=== PATIENT | male | born 1955 | race Caucasian/White ===

== ENCOUNTER 2019-08-01 10:32 | Emergency (ER) | payer SELFPAY ==
[2019-08-01] MEDS ORDERED: SODIUM CHLORIDE 0.9% 1,000 ML IV ONE (12:11)
--- NOTE | 2019-08-01 12:14 | ED Physician Documentation ---
History of Present Illness - Stated complaint Stated Complaint: CONFUSION/WEAKNESS - Chief complaint Chief Complaint: Neuro - History obtained from History obtained from: Patient, Family - History of Present Illness Timing: How many days ago - Additonal information Additional information: Previously well 64-year-old male with no real medical history has begun to feel extremely fatigued about 4 days ago he indicates that he felt that he was exhausted and he has been working on building a house and is under extreme stress. Despite resting he had no relief of his symptoms of being fatigued and today his family is noting that he is even having trouble plugging his cell phone and and is a bit confused. He denies any specific symptoms other than urinating more frequently and drinking more than usual. He does drink about 6 beers a day. He denies any use of whiskey and he denies early day drinking. Review of Systems Constitutional: reports: Myalgias, Fatigue. denies: Fever, Chills, Sweats Eyes: denies: Decreased vision Ears: denies: Ear pain Nose: denies: Rhinorrhea / runny nose, Congestion Throat: denies: Sore throat Cardiac: denies: Chest pain / pressure, Palpitations, Pedal edema, Calf pain Respiratory: denies: Dyspnea, Cough, Wheezing GI: denies: Abdominal Pain, Nausea, Vomiting, Constipation, Diarrhea : denies: Dysuria, Frequency Skin: denies: Rash Musculoskeletal: denies: Neck pain, Back pain, Extremity pain Neurologic: reports: Generalized weakness. denies: Focal weakness, Numbness Endocrine: reports: Polydypsia, Polyuria PD PAST MEDICAL HISTORY - Past Medical History Past Medical History: No Cardiovascular: None Respiratory: None Neuro: None Endocrine/Autoimmune: None GI: None : None HEENT: None Psych: None Musculoskeletal: None Derm: None - Past Surgical History Past Surgical History: No - Allergies Allergies/Adverse Reactions: Allergies Allergy/AdvReac Type Severity Reaction Status Date / Time No Known Drug Allergies Allergy Verified 08/01/19 10:45 - Social History Does the pt smoke?: Yes Smoking Status: Current every day smoker Does the pt drink ETOH?: Yes ETOH Use: Beer Does the pt have substance abuse?: No - Immunizations Immunizations are current?: Yes PD ED PE NORMAL - Vitals Vital signs reviewed: Yes (hypertensive) - General General: Alert and oriented X 3, No acute distress, Well developed/nourished - HEENT HEENT: Atraumatic, PERRL, EOMI, Ears normal, Moist mucous membranes, Pharynx benign, Dentition benign - Neck Neck: Supple, no meningeal sign, No bony TTP - Cardiac Cardiac: RRR, No murmur - Respiratory Respiratory: No respiratory distress, Clear bilaterally - Abdomen Abdomen: Normal bowel sounds, Soft, Non tender, Non distended, No organomegaly - Back Back: No CVA TTP, No spinal TTP - Derm Derm: Normal color, Warm and dry, No rash - Extremities Extremities: No deformity, No edema - Neuro Neuro: Alert and oriented X 3, patient services technician 2-12 intact, No motor deficit, No sensory deficit, Normal speech Eye Opening: Spontaneous Motor: Obeys Commands Verbal: Oriented GCS Score: 15 - Psych Psych: Normal mood, Normal affect Results - Vitals Vitals: Vital Signs - 24 hr 08/01/19 08/01/19 08/01/19 10:41 11:01 11:54 Temperature 36.4 C L Heart Rate 72 70 65 Respiratory 16 16 16 Rate Blood Pressure 142/86 H 123/69 119/74 O2 Saturation 98 97 98 08/01/19 08/01/19 08/01/19 12:54 13:30 14:01 Temperature Heart Rate 58 L 64 57 L Respiratory 16 16 15 Rate Blood Pressure 127/73 117/64 129/71 O2 Saturation 98 97 97 08/01/19 08/01/19 14:32 15:00 Temperature Heart Rate 61 62 Respiratory 16 16 Rate Blood Pressure 124/74 116/77 O2 Saturation 97 97 Oxygen O2 Source Room air - Labs Labs: Laboratory Tests 08/01/19 08/01/19 08/01/19 10:50 10:50 12:25 WBC 5.4 RBC 4.59 L Hgb 14.6 Hct 43.3 MCV 94.3 H MCH 31.8 H MCHC 33.7 RDW 12.5 Plt Count 217 MPV 10.2 Neut # (Auto) 3.1 Lymph # (Auto) 1.8 [place] # (Auto) 0.4 Eos # (Auto) 0.1 Baso # (Auto) 0.0 Absolute Nucleated RBC 0.00 Nucleated RBC % 0.0 Sodium 139 Potassium 3.8 Chloride 104 Carbon Dioxide 24 Anion Gap 11.0 BUN 12 Creatinine 0.8 Estimated GFR (MDRD) 97 Glucose 124 H Calcium 9.3 Total Bilirubin 1.2 H AST 25 ALT 22 Alkaline Phosphatase 52 Total Protein 7.7 Albumin 4.4 Globulin 3.3 Albumin/Globulin Ratio 1.3 Lipase 39 Urine Color YELLOW Urine Clarity CLEAR Urine pH 6.0 Ur Specific [place] 1.010 Urine Protein NEGATIVE Urine Glucose (UA) NEGATIVE Urine Ketones NEGATIVE Urine Occult Blood TRACE-INTA Urine Nitrite NEGATIVE Urine Bilirubin NEGATIVE Urine Urobilinogen 0.2 (NORMAL) Ur Leukocyte Esterase NEGATIVE Ur Microscopic Review NOT INDICATED Urine Culture Comments NOT INDICATED Procedures - IVC sono (time) 1200 Bedside IVC sono: IVC measures (cm) (0.89), IVC collapsed c insp (cm) (complete), Dehydration (est 1-2 liter deficit) PD MEDICAL DECISION MAKING - ED course Complexity details: considered differential, d/w patient, d/w family ED course: 64-year-old male with exhaustion and confusion has only symptoms of frequency and polydipsia and he is found to be dehydrated on interrogation the inferior vena cava and IV is begun he is given saline and a work-up is begun. Our work-up which included a CBC chemistry panel chest x-ray and urinalysis were all unremarkable. The only specific finding on examination today is the dehydration he is administered a liter of saline he felt a bit more perky after that he will need more fluid to complete his hydration and having encouraged him to take an extra quart of Gatorade today. He has been working 7 days/week on his house last week he was hanging drywall with a 16 foot ceilings and a 2 inch 2500 square foot shop. He then went in dog ditches yesterday and for some reason he is exhausted now. Departure - Departure Disposition: 01 Home, Self Care Clinical Impression: Dehydration, Exhaustion due to excessive exertion, initial encounter Condition: Stable Instructions: ED Dehydration, Fatigue Manage Follow-Up: Bora Sheikh MD [Primary Care Provider] - Comments: Today on your work-up we found that your significantly dehydrated we gave you 1 quart of saline and you were at least 2 quarts low. My recommendation is to drink an two additional quarts of Gatorade today and stay hydrated when you are working excessively.
[2019-08-01 12:32] LABS: BASOPHILS % (AUTO) 0.4 %; EOSINOPHILS # (AUTO) 0.1 10^3/uL (0.0-0.7); EOSINOPHILS % (AUTO) 1.9 %; HGB - HEMOGLOBIN 14.6 g/dL (14.0-18.0); LYMPHOCYTES # (AUTO) 1.8 10^3/uL (1.5-3.5); LYMPHOCYTES % (AUTO) 33.3 %; MEAN CORPUSCULAR HEMOGLOBIN 31.8 pg (27.0-31.0); MEAN CORPUSCULAR HGB CONC 33.7 g/dL (32.0-36.0); MEAN CORPUSCULAR VOLUME 94.3 fL (80.0-94.0); MEAN PLATELET VOLUME 10.2 fL (7.4-11.4); MONOCYTES # (AUTO) 0.4 10^3/uL (0.0-1.0); MONOCYTES % (AUTO) 7.1 %; NEUTROPHILS # (AUTO) 3.1 10^3/uL (1.5-6.6); NEUTROPHILS % (AUTO) 57.1 %; PLT - PLATELET COUNT 217 10^3/uL (130-450); RED BLOOD COUNT 4.59 10^6/uL (4.70-6.10); RED CELL DISTRIBUTION WIDTH 12.5 % (12.0-15.0); WHITE BLOOD COUNT 5.4 x10^3/uL (4.8-10.8)
[2019-08-01 12:47] LABS: ALBUMIN 4.4 g/dL (3.2-5.5); ALBUMIN/GLOBULIN RATIO 1.3 (1.0-2.2); BILIRUBIN,TOTAL 1.2 mg/dL (0.2-1.0); CALCIUM 9.3 mg/dL (8.5-10.3); CREATININE 0.8 mg/dL (0.6-1.2); TOTAL PROTEIN 7.7 g/dL (6.7-8.2)
--- NOTE | 2019-08-01 13:01 | XRAY Report ---
Reason: altered LOC Procedure Date: 08/01/2019 Accession Number: [id number] / [id number] Procedure: XR - Chest 2 View X-Ray CPT Code: 28544 Final Report FULL RESULT: EXAM: CHEST RADIOGRAPHY EXAM DATE: 08/01/2019 12:23 PM. CLINICAL HISTORY: Confusion COMPARISON: None. TECHNIQUE: 2 views. FINDINGS: Lungs/Pleura: No focal opacities evident. No pleural effusion. No pneumothorax. Normal volumes. Mediastinum: Heart and mediastinal contours are unremarkable. Other: None. IMPRESSION: No acute intrathoracic plain film abnormality. RADIA
[2019-08-01 14:08] LABS: BILIRUBIN,URINE NEGATIVE (NEGATIVE); GLUCOSE, URINE (UA) NEGATIVE (NEGATIVE); KETONES,URINE (UA) NEGATIVE (NEGATIVE); LEUKOCYTE ESTERASE, URINE NEGATIVE (NEGATIVE); NITRITE,URINE NEGATIVE (NEGATIVE); OCCULT BLOOD,URINE TRACE-INTA (NEGATIVE); PROTEIN,URINE NEGATIVE (NEGATIVE); UROBILINOGEN,URINE 0.2 (NORMAL) E.U./dL (NORMAL)
[2019-08-01 14:09] LABS: CLARITY,URINE CLEAR (CLEAR)
[2019-08-01] MEDS ORDERED: cefTRIAXone 1 GM in SODIUM CHLORIDE 0.9% MINIBAG 100 ML IV STA (15:15)
[2019-08-01 15:38] VITALS: BP 131/82
== END 2019-08-01 15:38 | disposition home or self-care (01) ==
LOC: ED 10:32
DX: E86.0 Dehydration (principal); R53.83 Other fatigue; F17.200 Nicotine dependence, unspecified, uncomplicated
CPT/HCPCS: 36415; 71046; 80053; 81001; 81003; 83690; 85025; 87086; 96360; 99282

== ENCOUNTER 2019-11-22 09:38 | Outpatient (CLI) | payer MEDICAID ==
[2019-11-22 12:33] LABS: BASOPHILS % (AUTO) 0.7 %; EOSINOPHILS % (AUTO) 1.8 %; HGB - HEMOGLOBIN 14.5 g/dL (14.0-18.0); LYMPHOCYTES % (AUTO) 32.4 %; MEAN CORPUSCULAR HEMOGLOBIN 32.5 pg (27.0-31.0); MEAN CORPUSCULAR HGB CONC 34.9 g/dL (32.0-36.0); MEAN CORPUSCULAR VOLUME 93.3 fL (80.0-94.0); MEAN PLATELET VOLUME 10.1 fL (7.4-11.4); MONOCYTES % (AUTO) 7.7 %; PLT - PLATELET COUNT 214 10^3/uL (130-450); RED BLOOD COUNT 4.46 10^6/uL (4.70-6.10); RED CELL DISTRIBUTION WIDTH 12.4 % (12.0-15.0); WHITE BLOOD COUNT 5.6 x10^3/uL (4.8-10.8)
[2019-11-22 13:05] LABS: ALBUMIN 4.4 g/dL (3.2-5.5); ALBUMIN/GLOBULIN RATIO 1.4 (1.0-2.2); ALKALINE PHOSPHATASE 81 IU/L (42-121); ALT ALANINE AMINOTRANSFERASE 22 IU/L (10-60); AST ASPARTATE AMINOTRANSFERASE 24 IU/L (10-42); BILIRUBIN,TOTAL 0.6 mg/dL (0.2-1.0); BUN - BLOOD UREA NITROGEN 19 mg/dL (6-20); CALCIUM 9.2 mg/dL (8.5-10.3); CARBON DIOXIDE - CO2 25 mmol/L (21-32); CHLORIDE 108 mmol/L (101-111); CHOL/HDL RATIO 6.3 (<5.0); CHOLESTEROL 272 mg/dL; CREATININE 0.9 mg/dL (0.6-1.2); GLUCOSE 130 mg/dL (70-100); HDL CHOLESTEROL 43 mg/dL; LDL CHOLESTEROL,CALCULATED 202 mg/dL; LDL/HDL RATIO 4.7 (<3.6); SODIUM 139 mmol/L (135-145); TOTAL PROTEIN 7.5 g/dL (6.7-8.2); VLDL CHOLESTEROL 27 mg/dL
[2019-11-22 13:09] LABS: ABNORMAL LYMPHS % (MANUAL) 0 %; BAND NEUTROPHILS % (MANUAL) 0 %
[2019-11-22 13:11] LABS: HB2 TOTAL 14.7 g/dL; HEMOGLOBIN A1C 0.51 g/dL; HEMOGLOBIN A1C % 5.3 % (4.6-6.2)
[2019-11-22 13:40] LABS: BASOPHILS # (MANUAL) 0.1 10^3/uL (0-0.1); BASOPHILS % (MANUAL) 1 %; EOSINOPHILS # (MANUAL) 0.1 10^3/uL (0-0.7); LYMPHOCYTES # (MANUAL) 1.7 10^3/uL (1.5-3.5); LYMPHOCYTES % (MANUAL) 13 %; MONOCYTES # (MANUAL) 0.2 10^3/uL (0.0-1.0)
[2019-11-22 14:01] LABS: DIFFERENTIAL COMMENT MANUAL DIFFERENTIAL
== END 2019-11-22 23:59 | disposition home or self-care (01) ==
LOC: LAB.WCP 09:38
PROVIDERS: ATTEND Family Medicine
DX: Z00.00 Encounter for general adult medical examination without abnormal findings (principal); Z12.5 Encounter for screening for malignant neoplasm of prostate
CPT/HCPCS: 36415; 80053; 80061; 83036; 83721; 84153; 84443; 85025

== ENCOUNTER 2020-01-21 08:28 | Day surgery (SDC) | payer MEDICAID ==
[2020-01-21] MEDS ORDERED: MIDAZOLAM 2 MG/2 ML VIAL IVP ONE (08:29)
[2020-01-21] MEDS ORDERED: fentaNYL 250 MCG/5 ML VIAL IVP ONE (08:29)
[2020-01-21] MEDS ORDERED: LACTATED RINGERS 1,000 ML IV ONE ×2 (08:58→12:13)
[2020-01-21 12:01] VITALS: BP 135/84
== END 2020-01-21 08:29 | disposition home or self-care (01) ==
LOC: SDS 08:28
PROVIDERS: ATTEND Surgery
PROC: 0DBM8ZZ Excision of Descending Colon, Via Natural or Artificial Opening Endoscopic (ICD-10-PCS; 2020-01-21)
PROC: 0DBL8ZZ Excision of Transverse Colon, Via Natural or Artificial Opening Endoscopic (ICD-10-PCS; 2020-01-21)
PROC: 0DBP8ZX Excision of Rectum, Via Natural or Artificial Opening Endoscopic, Diagnostic (ICD-10-PCS; 2020-01-21)
PROC: 0DBN8ZZ Excision of Sigmoid Colon, Via Natural or Artificial Opening Endoscopic (ICD-10-PCS; principal; 2020-01-21 09:30)
DX: Z12.11 Encounter for screening for malignant neoplasm of colon (principal); D12.3 Benign neoplasm of transverse colon; D12.5 Benign neoplasm of sigmoid colon; K62.1 Rectal polyp; K63.5 Polyp of colon; Z87.891 Personal history of nicotine dependence
CPT/HCPCS: 45380; 45385; J3010; J7120

== ENCOUNTER 2020-04-20 14:42 | Outpatient (CLI) | payer MEDICAID | END 2020-04-20 14:43 | disposition home or self-care (01) | LOC: DI.N 14:42 | PROVIDERS: ATTEND Family Medicine | DX: Z53.9 Procedure and treatment not carried out, unspecified reason (principal) ==

== ENCOUNTER 2020-04-20 16:59 | Outpatient (CLI) | payer MEDICARE, MEDICAID ==
--- NOTE | 2020-04-20 17:01 | XRAY Report ---
PROCEDURE: Knee 3 View BILAT INDICATIONS: R AND L KNEE PX TECHNIQUE: 3 views of each knee(s) were acquired. COMPARISON: None. FINDINGS: Bones: No fractures or dislocations. No suspicious bony lesions. Soft tissues: No joint effusion. No suspicious soft tissue calcifications. IMPRESSION: No acute fracture. No osseous lesion. If symptoms and/or clinical suspicion for patholog y continue, further assessment with repeat plain films, or advanced imaging (e.g., CT, MRI, or bone s can) is recommended for further assessment. Reviewed by: Alisa Antonio MD on 04/20/2020 5:00 PM PST Approved by: Alisa Antonio MD on 04/20/2020 5:00 PM PST Station ID: [id number]
== END 2020-04-20 23:59 | disposition home or self-care (01) ==
LOC: DI.N 16:59
PROVIDERS: ATTEND Family Medicine
DX: M25.561 Pain in right knee (principal); M25.562 Pain in left knee

== ENCOUNTER 2020-05-08 08:00 | Outpatient (CLI) | payer MEDICAID ==
[2020-05-08 13:45] LABS: BASOPHILS % (AUTO) 0.4 %; EOSINOPHILS # (AUTO) 0.1 10^3/uL (0.0-0.7); EOSINOPHILS % (AUTO) 1.9 %; HGB - HEMOGLOBIN 14.9 g/dL (14.0-18.0); LYMPHOCYTES # (AUTO) 1.8 10^3/uL (1.5-3.5); LYMPHOCYTES % (AUTO) 24.1 %; MEAN CORPUSCULAR HEMOGLOBIN 32.5 pg (27.0-31.0); MEAN CORPUSCULAR HGB CONC 34.1 g/dL (32.0-36.0); MEAN CORPUSCULAR VOLUME 95.2 fL (80.0-94.0); MEAN PLATELET VOLUME 10.1 fL (7.4-11.4); MONOCYTES # (AUTO) 0.6 10^3/uL (0.0-1.0); MONOCYTES % (AUTO) 7.9 %; NEUTROPHILS # (AUTO) 4.8 10^3/uL (1.5-6.6); NEUTROPHILS % (AUTO) 65.4 %; PLT - PLATELET COUNT 224 10^3/uL (130-450); RED BLOOD COUNT 4.59 10^6/uL (4.70-6.10); RED CELL DISTRIBUTION WIDTH 12.9 % (12.0-15.0); WHITE BLOOD COUNT 7.3 x10^3/uL (4.8-10.8)
[2020-05-08 14:09] LABS: ALBUMIN 4.3 g/dL (3.2-5.5); ALBUMIN/GLOBULIN RATIO 1.3 (1.0-2.2); ALKALINE PHOSPHATASE 61 IU/L (42-121); ALT ALANINE AMINOTRANSFERASE 17 IU/L (10-60); AST ASPARTATE AMINOTRANSFERASE 20 IU/L (10-42); BILIRUBIN,TOTAL 0.6 mg/dL (0.2-1.0); BUN - BLOOD UREA NITROGEN 13 mg/dL (6-20); CALCIUM 9.3 mg/dL (8.5-10.3); CARBON DIOXIDE - CO2 24 mmol/L (21-32); CHLORIDE 105 mmol/L (101-111); CREATININE 0.9 mg/dL (0.6-1.2); GLUCOSE 112 mg/dL (70-100); SODIUM 138 mmol/L (135-145); TOTAL PROTEIN 7.5 g/dL (6.7-8.2)
[2020-05-08 14:21] LABS: CRP - C-REACTIVE PROTEIN < 1.0 mg/dL (0-1.0)
[2020-05-08 14:40] LABS: RHEUMATOID FACTOR NEGATIVE (Negative)
[2020-05-10 20:57] LABS: ANA SCREEN NEGATIVE (NEGATIVE)
== END 2020-05-08 23:59 | disposition home or self-care (01) ==
LOC: LAB.WCP 08:00
PROVIDERS: ATTEND Internal Medicine
DX: M25.569 Pain in unspecified knee (principal)
CPT/HCPCS: 36415; 80053; 85025; 85651; 86038; 86140; 86200; 86430

== ENCOUNTER 2020-05-20 09:17 | Outpatient (CLI) | payer MEDICARE, MEDICAID ==
--- NOTE | 2020-05-22 08:53 | MRI Report ---
PROCEDURE: Knee LT W/O INDICATIONS: BILATERAL KNEE PAIN TECHNIQUE: Noncontrast sagittal PD fast spin echo and T2 fast spin echo with fat saturation, sagittal 3-D gradie nt sequence with fat saturation; coronal T1 spin echo and PD fast spin echo with fat saturation, and axial PD fast spin echo with fat saturation through the knee. COMPARISON: Plain films of the knees dated 04/20/2020 FINDINGS: Image quality: Excellent. Menisci: There is vague linear oblique high T2 signal intensity traversing the medial meniscal body a nd posterior horn, demonstrating superior articular surface extension (series 901, image 18), indicat ing oblique tearing. Lateral meniscus is intact. Cruciate ligaments: The anterior and posterior cruciate ligaments appear intact. Medial structures: The medial collateral ligament appears intact. Visualized portions of the pes ans erinus tendons appear normal. No abnormal bursal fluid. Lateral structures: The lateral collateral ligament demonstrates moderate grade tearing at the femor al origin. The long and short heads of the biceps femoris tendon appear intact. The popliteus tendon appears normal. Iliotibial band appears normal. Anterior structures: Moderate prepatellar subcutaneous ill-defined T2 signal elevation is present. T he quadriceps and patellar tendons appear intact. Severe T2 signal elevation within the patellar ten don at the patellar insertion site is present. Patellar alignment is normal. No femoral trochlear dy splasia or ventral trochlear prominence. No edema in the infrapatellar fat pad. Bones and cartilage: No bone marrow contusions or fractures. There is a 10 mm focus of heterogeneous proton density signal within the lateral femoral condyle, which demonstrates signal dropout on fat-s uppressed imaging, consistent with a lipoma or hemangioma. There is mild tricompartmental periarticul ar osteophyte formation. There is mild articular cartilage loss diffusely overlying the weightbearing aspects of the medial and lateral compartments. Moderate articular cartilage loss overlies the media l and lateral patellar facets inferiorly. Joint space: There is physiologic knee joint fluid. Small Nichols?s cyst. Normal appearing synovial p licae are incidentally noted. IMPRESSION: 1. 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 2. Subtle tearing of the medial meniscus. 3. Severe patellar tendinitis. 4. Prepatellar bursitis. 5. Partial-thickness lateral collateral ligament tear. 6. Small Nichols's cyst. Reviewed by: Alisa Antonio MD on 05/22/2020 8:51 AM PST Approved by: Alisa Antonio MD on 05/22/2020 8:51 AM PST Station ID: [id number]
--- NOTE | 2020-05-22 08:56 | MRI Report ---
PROCEDURE: Knee RT W/O INDICATIONS: BILATERAL KNEE PAIN TECHNIQUE: Noncontrast sagittal PD fast spin echo and T2 fast spin echo with fat saturation, sagittal 3-D gradie nt sequence with fat saturation; coronal T1 spin echo and PD fast spin echo with fat saturation, and axial PD fast spin echo with fat saturation through the knee. COMPARISON: None. FINDINGS: Image quality: Excellent. Menisci: Medial extrusion of the medial meniscus. There is truncation of the free edge of the posteri or horn medial meniscus which demonstrates amorphous high signal intensity and inferior articular joshua face extension, indicating complex tearing. There is amorphous high signal intensity within the poste rior horn medial meniscus at the meniscal root ligament insertion site, demonstrating inferior articu lar surface extension, indicating degenerative tearing. Lateral meniscus is intact. Cruciate ligament s: The anterior and posterior cruciate ligaments appear intact. Medial structures: The medial collateral ligament appears intact. Visualized portions of the pes ans erinus tendons appear normal. No abnormal bursal fluid. Lateral structures: The lateral collateral ligament demonstrates moderate T2 signal elevation at the femoral origin. The long and short heads of the biceps femoris tendon appear intact. The popliteus tendon appears normal;. Iliotibial band appears normal. Anterior structures: The quadriceps and patellar tendons appear intact. There is moderate T2 signal elevation within the patellar tendon at the patellar insertion site. There is moderate prepatellar s ubcutaneous ill-defined T2 signal elevation. Patellar alignment is normal. No femoral trochlear dysp lasia or ventral trochlear prominence. No edema in the infrapatellar fat pad. Bones and cartilage: No bone marrow contusions or fractures. Mild tricompartment periarticular osteo phyte formation is present. There is moderate articular cartilage loss diffusely overlying the weight bearing aspects of the medial femoral condyle and medial tibial plateau. Mild articular cartilage los s diffusely overlies the weightbearing aspects of the lateral femoral condyle and lateral tibial plat eau. Joint space: There is physiologic knee joint fluid. Moderate Nichols?s cyst. Normal appearing synovia l plicae are incidentally noted. IMPRESSION: 1. Tricompartment loss or arthritis with associated articular cartilage loss. 2. Medial meniscal tearing. 3. Patellar tendinitis. 4. Partial-thickness lateral collateral ligament tear. 5. Nichols's cyst. 6. Prepatellar bursitis. Reviewed by: Alisa Antonio MD on 05/22/2020 8:55 AM PST Approved by: Alisa Antonio MD on 05/22/2020 8:55 AM PST Station ID: [id number]
== END 2020-05-20 09:18 | disposition home or self-care (01) ==
LOC: DI 09:17
PROVIDERS: ATTEND Internal Medicine
DX: M17.0 Bilateral primary osteoarthritis of knee (principal); S83.242A Other tear of medial meniscus, current injury, left knee, initial encounter; S83.241A Other tear of medial meniscus, current injury, right knee, initial encounter; M70.42 Prepatellar bursitis, left knee; M70.41 Prepatellar bursitis, right knee; M71.22 Synovial cyst of popliteal space [Baker], left knee; M71.21 Synovial cyst of popliteal space [Baker], right knee; S83.422A Sprain of lateral collateral ligament of left knee, initial encounter; S83.421A Sprain of lateral collateral ligament of right knee, initial encounter; M76.52 Patellar tendinitis, left knee; M76.51 Patellar tendinitis, right knee

== ENCOUNTER 2021-05-11 11:11 | Outpatient (CLI) | payer MEDICARE ==
--- NOTE | 2021-05-11 15:09 | Ultrasound Report ---
PROCEDURE: Aorta Screening INDICATIONS: HX OF SMOKING,AAA SCREENING TECHNIQUE: Real time scanning was performed of the aorta and iliac arteries, with image documentatio n. COMPARISON: None. FINDINGS: Aorta: Proximal aortic diameter measures 2.7 x 2.6 cm. Mid-aorta measures 2.2 x 2.1 cm. Distal aor tic diameter is 2.1 x 1.7 cm. Iliac arteries: Right common iliac artery measures 1.4 x 1.0 cm. Left common iliac artery measures 1.3 x 1.2 cm. Image quality is suboptimal due to overlying bowel gas. A fluid-filled cystic structure is seen in the mid to lower abdomen measuring 23.8 x 10.6 x 17.5 cm t hat is of uncertain etiology, possibly representing a distended urinary bladder. There is mild left-s ided hydronephrosis. IMPRESSION: 1.No sonographic evidence of abdominal aortic aneurysm. 2.Incidental large fluid-filled structure in the mid to lower abdomen measuring up to 24 cm in maximu m dimension. This could represent a markedly distended urinary bladder versus a nonspecific loculated intra-abdominal fluid collection or cystic neoplasm. Recommend clinical correlation and follow-up [facility] ultrasound of the kidneys and bladder versus CT of the abdomen and pelvis. 3.Mild left-sided hydronephrosis. Reviewed by: Nomi Douglas MD on 05/11/2021 3:08 PM PST Approved by: Nomi Douglas MD on 05/11/2021 3:08 PM PST Station ID: [id number]
== END 2021-05-11 11:12 | disposition home or self-care (01) ==
LOC: DI 11:11
PROVIDERS: ATTEND Internal Medicine
DX: Z13.6 Encounter for screening for cardiovascular disorders (principal); Z87.891 Personal history of nicotine dependence; R93.5 Abnormal findings on diagnostic imaging of other abdominal regions, including retroperitoneum; N13.30 Unspecified hydronephrosis

== ENCOUNTER 2021-05-29 08:05 | Outpatient (CLI) | payer MEDICARE ==
[2021-05-29] MEDS ORDERED: IOPAMIDOL-300 50 ML VIAL ONE (08:17)
[2021-05-29] MEDS ORDERED: IOPAMIDOL-300 100 ML VIAL ONE (08:17)
--- NOTE | 2021-05-29 10:02 | CT Report ---
PROCEDURE: Abdomen/Pelvis W INDICATIONS: ABDOMINAL CYST CONTRAST: IV CONTRAST: Isovue 300 ml: 100 PO CONTRAST: Isovue 300 ml50 TECHNIQUE: After the administration of contrast, 5 mm thick sections acquired from the diaphragms to the sym physis. 5 mm thick coronal and sagittal reformats were acquired. For radiation dose reduction, the following was used: automated exposure control, adjustment of mA and/or kV according to patient size . COMPARISON: Ultrasound of the aorta dated 05/11/2021 FINDINGS: Image quality: Excellent. ABDOMEN: Lung bases: Lung bases are clear. Heart size is normal. Solid organs: Liver and spleen are normal in size and enhancement. The liver has a 2 cm cyst in the right lobe inferiorly and 2 smaller subcentimeter cysts. Gallbladder is normal Biliary system is no n dilated. Pancreas enhances normally. No adrenal nodules. The left kidney has a 2 cm cyst of the m idpole posteriorly. There is prominence of the left collecting system but no overt hydronephrosis. Peritoneum and bowel: Bowel loops demonstrate normal wall thickness and caliber. No free fluid or a ir. Nodes and vessels: No retroperitoneal or mesenteric adenopathy by size criteria. Aorta and inferior vena cava are normal in size. Miscellaneous: No ventral hernias. PELVIS: Genitourinary: A fluid containing structure extending from the suprapubic area measures 18 x 11 x 23 cm. Given that the bladder is not separately seen, this is likely a distended bladder. There is a 1.2 x 0.8 x 0.8 cm oval stone layering dependently within. There is irregularity of the garcia of the dom e Bones: No suspicious bony lesions. No vertebral body compression fractures. IMPRESSION: 1. Large fluid structure in the mid lower abdomen described on prior ultrasound is likely the bladder and measures 18 x 11 x 23 cm currently. Recommend placement of a Vergara catheter which will likely khmer eld several liters of urine if this is the bladder. 2. Bladder stone laying dependently. Reviewed by: Sam Olivares on 05/29/2021 9:00 AM [facility]IS A Approved by: Sam Olivares on 05/29/2021 9:00 AM [facility] Station ID: [id number]
[2021-05-29] MEDS ORDERED: IOPAMIDOL-300 50 ML VIAL PO ONE (11:17)
[2021-05-29] MEDS ORDERED: IOPAMIDOL-300 100 ML VIAL IVP ONE (11:17)
== END 2021-05-29 08:06 | disposition home or self-care (01) ==
LOC: DI 08:05
PROVIDERS: ATTEND Internal Medicine
DX: K66.8 Other specified disorders of peritoneum (principal); N21.0 Calculus in bladder
CPT/HCPCS: 36415; 74177; 82565; Q9967

== ENCOUNTER 2021-07-26 08:40 | Outpatient (CLI) | payer MEDICARE ==
--- NOTE | 2021-07-26 12:01 | Ultrasound Report ---
PROCEDURE: Retroperitoneal INDICATIONS: URINARY RETENTION TECHNIQUE: Real-time scanning was performed of the kidneys and bladder, with image documentation. COMPARISON: CT abdomen/pelvis 05/29/2021 FINDINGS: Kidneys: Kidneys are normal in size. Right kidney measures 11.1 cm long; left kidney measures 12.3 cm long. Right renal cortical thickness is 2.2 cm; left renal cortical thickness is 1.7 cm. Renal c ortical echotexture is normal. No hydronephrosis or nephrolithiasis. No suspicious solid mass lesio ns. Multiple bilateral renal cysts. Bladder: Pre-void bladder volume is 707 mL. Patient unable to void at the time of the exam. A 2.0 x 0.6 x 1.5 cm mobile calculus is seen within the bladder. Bladder wall appears thickened and trabecula nae. On pre-void images, bilateral ureteral jets are noted with color Doppler interrogation. (Of not e, ureteral jets may not be detectable in up to 25% of cases due to insufficient differences in speci fic gravity between ureteral and bladder urine). Miscellaneous: No free pelvic fluid. Prostate measures 4.6 x 3.9 x 4.4 cm (40 cc). Prostate calcifi cations are noted. Incidental right hepatic cysts are seen measuring up to 2.2 and 0.6 cm respectivel y. IMPRESSION: 1.Distended urinary bladder with volume of 707 mL. Patient unable to void at the time of the exam. Bl adder wall is thickened and trabeculated. 2.Mobile 2 cm bladder calculus. 3.Mild prostatomegaly. 4.No hydronephrosis. Reviewed by: Nomi Douglas MD on 07/26/2021 12:00 PM PST Approved by: Nomi Douglas MD on 07/26/2021 12:00 PM PST Station ID: [id number]
== END 2021-07-26 08:41 | disposition home or self-care (01) ==
LOC: DI 08:40
PROVIDERS: ATTEND Physician Assistant Medical
DX: N21.0 Calculus in bladder (principal); N40.1 Benign prostatic hyperplasia with lower urinary tract symptoms; R33.8 Other retention of urine; N32.89 Other specified disorders of bladder

== ENCOUNTER 2022-06-25 07:01 | Inpatient (IN) | payer MEDICARE ==
[2022-06-25 07:28] LABS: BASOPHILS % (AUTO) 0.8 %; EOSINOPHILS # (AUTO) 0.2 10^3/uL (0.0-0.7); EOSINOPHILS % (AUTO) 3.1 %; HCT - HEMATOCRIT 41.4 % (42.0-52.0); HGB - HEMOGLOBIN 14.3 g/dL (14.0-18.0); LYMPHOCYTES # (AUTO) 1.7 10^3/uL (1.5-3.5); LYMPHOCYTES % (AUTO) 33.4 %; MEAN CORPUSCULAR HEMOGLOBIN 32.9 pg (27.0-31.0); MEAN CORPUSCULAR HGB CONC 34.5 g/dL (32.0-36.0); MEAN CORPUSCULAR VOLUME 95.4 fL (80.0-94.0); MEAN PLATELET VOLUME 9.3 fL (7.4-11.4); MONOCYTES # (AUTO) 0.5 10^3/uL (0.0-1.0); MONOCYTES % (AUTO) 9.7 %; NEUTROPHILS # (AUTO) 2.7 10^3/uL (1.5-6.6); NEUTROPHILS % (AUTO) 52.8 %; PLT - PLATELET COUNT 172 10^3/uL (130-450); RED BLOOD COUNT 4.34 10^6/uL (4.70-6.10); RED CELL DISTRIBUTION WIDTH 12.9 % (12.0-15.0); WHITE BLOOD COUNT 5.2 x10^3/uL (4.8-10.8)
--- NOTE | 2022-06-25 07:33 | ED Physician Documentation ---
PD HPI FOCAL NEURO - Stated complaint Stated Complaint: CODE STROKE - Chief complaint Chief Complaint: Neuro - History obtained from History obtained from: Patient, EMS - Additional information Additional information: Patient is a 67-year-old male with no significant known medical history presenting for evaluation of right-sided facial droop, slurred speech and right- sided weakness that was noticed at 6:00 this morning when he woke up. Per the patient he woke up at 3:00 And felt fine at that time. When he woke up around 6:00 he had abnormal speech and right-sided weakness. The report from EMS is that the noticed that his symptoms completely resolved for around 2 minutes and then reoccurred. During transport EMS has noticed that his Symptoms will periodically worsen And then get better although they have not seen his symptoms completely resolved. Patient does not take a blood thinner. He denies a history of stroke. He does have a history of urinary retention and self caths several times a day. He also admits to drinking 4-5 beers nightly. He denies other substance use.He denies recent trauma or injury. Review of Systems Constitutional: denies: Fever Cardiac: denies: Chest pain / pressure Respiratory: denies: Dyspnea GI: denies: Abdominal Pain : denies: Dysuria Musculoskeletal: denies: Back pain Neurologic: reports: Focal weakness. denies: Headache PD PAST MEDICAL HISTORY - Past Medical History Cardiovascular: None Respiratory: None Neuro: None Endocrine/Autoimmune: None GI: None : None HEENT: None Psych: None Musculoskeletal: Osteoarthritis Derm: None - Past Surgical History Past Surgical History: No HEENT: Cataracts - Present Medications Home Medications: Ambulatory Orders Medication Instructions Recorded Confirmed No Known Home Medications 01/20/20 06/25/22 - Allergies Allergies/Adverse Reactions: Allergies Allergy/AdvReac Type Severity Reaction Status Date / Time No Known Drug Allergies Allergy Verified 06/25/22 07:10 - Social History Does the pt smoke?: Yes Smoking Status: Current every day smoker Does the pt drink ETOH?: Yes Does the pt have substance abuse?: No - Immunizations Immunizations are current?: Yes PD ED PE NORMAL - General General: Alert and oriented X 3, No acute distress, Well developed/nourished - HEENT HEENT: Atraumatic, PERRL, Moist mucous membranes, Pharynx benign (Tongue is midline). No: EOMI - Neck Neck: Supple, no meningeal sign - Cardiac Cardiac: RRR - Respiratory Respiratory: No respiratory distress, Clear bilaterally - Abdomen Abdomen: Soft, Non tender - Derm Derm: Warm and dry - Extremities Extremities: No calf tenderness / cord - Neuro Neuro: Alert and oriented X 3, No sensory deficit. No: nurse advocate 2-12 intact (Right- sided facial droop, left gaze preference), No motor deficit (Right arm and leg weakness), Normal speech (Mildly slurred speech) NIHSS - Time Time: 07:24 - Level of Consciousness Level of consciousness: (0) Alert, Keenly responsive LOC Questions: (0) Answers both Q's correct LOC Commands: (0) Performs both correctly - Gaze Best Gaze: (1) Partial gaze palsy - Visual Visual: (0) No loss - Facial Palsy Facial Palsy: (1) Minor paralysis - Motor Arms (both separate) Motor Arm (right): (2) Some effort against gravity Motor Arm (left): (0) No drift - Motor Legs (both separate) Motor Leg (right): (1) Drift Motor Leg (left): (0) No drift - Limb Ataxia Limb Ataxia: (0) Absent - Sensory Sensory: (0) Normal - Best Language Best Language: (0) No aphasia - Dysarthria Dysarthria: (1) [id number] dysarthria - Extinction and Inattention (formally neg Extinction and inattention: (0) No abnormality - Total Score/Results Total Score/Result: 6 Results - Vitals Vitals: Vital Signs - 24 hr 06/25/22 06/25/22 06/25/22 07:04 07:37 07:47 Temperature 36.8 C Heart Rate 65 60 66 Respiratory 18 17 18 Rate Blood Pressure 135/78 H 154/89 H 154/89 H O2 Saturation 98 97 96 06/25/22 08:14 Temperature Heart Rate 64 Respiratory 18 Rate Blood Pressure 129/95 H O2 Saturation 95 Oxygen O2 Source Room air - EKG (time done) 0737 Rate: Rate (enter#) (59) Rhythm: NSR [place]: Normal Intervals: No: Prolonged QT Ischemia: No: ST elevation c/w ischemia Compare to prior EKG: Old EKG unavailable - Labs Labs: Laboratory Tests 06/25/22 06/25/22 06/25/22 07:24 07:24 07:24 WBC 5.2 RBC 4.34 L Hgb 14.3 Hct 41.4 L MCV 95.4 H MCH 32.9 H MCHC 34.5 RDW 12.9 Plt Count 172 MPV 9.3 Neut # (Auto) 2.7 Lymph # (Auto) 1.7 [place] # (Auto) 0.5 Eos # (Auto) 0.2 Baso # (Auto) 0.0 Absolute Nucleated RBC 0.00 Nucleated RBC % 0.0 PT 10.6 INR 0.9 Sodium 134 L Potassium 3.8 Chloride 102 Carbon Dioxide 23 Anion Gap 9.0 BUN 20 Creatinine 1.0 Estimated GFR (MDRD) 75 L Glucose 110 H Calcium 8.2 L Total Bilirubin 0.7 AST 26 ALT 37 Alkaline Phosphatase 66 Total Protein 6.7 Albumin 3.7 Globulin 3.0 Albumin/Globulin Ratio 1.2 Ethyl Alcohol < 5.0 SARS-CoV-2 (PCR) 06/25/22 07:45 WBC RBC Hgb Hct MCV MCH MCHC RDW Plt Count MPV Neut # (Auto) Lymph # (Auto) [place] # (Auto) Eos # (Auto) Baso # (Auto) Absolute Nucleated RBC Nucleated RBC % PT INR Sodium Potassium Chloride Carbon Dioxide Anion Gap BUN Creatinine Estimated GFR (MDRD) Glucose Calcium Total Bilirubin AST ALT Alkaline Phosphatase Total Protein Albumin Globulin Albumin/Globulin Ratio Ethyl Alcohol SARS-CoV-2 (PCR) NOT DETECTED PD Medical Decision Making - ED course Complexity details: reviewed results, re-evaluated patient, d/w patient, d/w family ED course: Patient was seen as a code stroke. He has a waxing and waning symptoms with right-sided weakness, left-sided gaze preference, abnormal speech and facial weakness.Initially his NIH was a low. He was sent for CT scans. There is no signs of intracranial bleed. There is also no signs of a large vessel occlusion.His symptoms continue to be on and off. I did consult with telestroke as he did have a period where he was symptom-free but per their recommendation this does not reset the clock and he is still not a candidate for tenecteplase .He is not febrile and does not appear septic. I am concerned for a stroke versus TIA. I have started him on an aspirin and a statin. I discussed the case with the hospitalist will admit for further management. Patient is protecting his airway. 07 - D/W Dr. Nair Telestroke. Patient's last normal is 3:00 even if his symptoms have resolved and then reoccurred. Therefore he would not be a c andidate for tenecteplase. She will review the angios to see if there are any evidence of a large vessel occlusion and call us back. 08 - D/W Dr. Nair Telestroke. No signs of a large vessel occlusion on angios but there is evidence of atherosclerotic disease. Recommends a full dose aspirin, atorvastatin 80 mg, gentle hydration, bedrest for the next several hours, MRI without contrast. 0815 - Symptoms have resolved. 899 - D/w Hospitalist, Dr. Diane who will admit the patient. Departure - Departure Disposition: ED Place in Observation Discharge Date/Time: 06/25/22 10:07
[2022-06-25 07:35] LABS: INR 0.9 (0.8-1.2); PT - PROTHROMBIN TIME 10.6 secs (9.9-12.6)
[2022-06-25] MEDS ORDERED: iohexoL-300 100 ML VIAL ONE (07:37)
[2022-06-25] MEDS ORDERED: iohexoL-300 100 ML VIAL IVP ONE (07:40)
[2022-06-25 07:41] LABS: ALBUMIN 3.7 g/dL (3.2-5.5); ALBUMIN/GLOBULIN RATIO 1.2 (1.0-2.2); ALKALINE PHOSPHATASE 66 IU/L (42-121); ALT ALANINE AMINOTRANSFERASE 37 IU/L (10-60); AST ASPARTATE AMINOTRANSFERASE 26 IU/L (10-42); BILIRUBIN,TOTAL 0.7 mg/dL (0.2-1.0); BUN - BLOOD UREA NITROGEN 20 mg/dL (6-20); CALCIUM 8.2 mg/dL (8.5-10.3); CARBON DIOXIDE - CO2 23 mmol/L (21-32); CHLORIDE 102 mmol/L (101-111); ETOH - ETHANOL < 5.0 mg/dL; GFR - MDRD 75 (>89); GLUCOSE 110 mg/dL (70-100); POTASSIUM 3.8 mmol/L (3.5-5.0); SODIUM 134 mmol/L (135-145); TOTAL PROTEIN 6.7 g/dL (6.7-8.2)
[2022-06-25] MEDS ORDERED: ASPIRIN CHEW 81 MG TABLET PO STA (07:52)
[2022-06-25] MEDS ORDERED: SODIUM CHLORIDE 0.9% 1,000 ML IV STA (08:06)
[2022-06-25] MEDS ORDERED: ATORVASTATIN 40 MG TABLET PO STA (08:06)
--- NOTE | 2022-06-25 08:07 | CT Report ---
PROCEDURE: Head W/O Stroke Protocol INDICATIONS: R sided weakness; aphasia TECHNIQUE: Noncontrast 4.5 mm thick angled axial sections acquired from the foramen magnum to the vertex, with c oronal reformats. For radiation dose reduction, the following was used: automated exposure control, adjustment of mA and/or kV according to patient size. COMPARISON: FINDINGS: Image quality: Excellent. CSF spaces: Basal cisterns are patent. No extra-axial fluid collections. Ventricles are normal in size and shape. Brain: No midline shift. No intracranial masses or hemorrhage. Salguero-white matter interface is norm al. Focus of old ischemia in the right medel radiata. Skull and face: Calvarium and visualized facial bones are intact, without suspicious lesions. Left frontal scalp hematoma. Sinuses: Visualized sinuses and mastoids are clear. IMPRESSION: 1. No acute intracranial process. The above findings are concordant with preliminary report. This study fulfills neurological imaging criteria for inclusion or exclusion of acute stroke therapie s based on available published neurological imaging guidelines. Reviewed by: Teresa Umaña MD on 06/25/2022 8:06 AM [facility] Approved by: Teresa Umaña MD on 06/25/2022 8:06 AM PST Station ID: [id number]
[2022-06-25] MEDS ORDERED: ONDANSETRON ODT 4 MG TABLET TL PRN (09:00)
[2022-06-25] MEDS ORDERED: ACETAMINOPHEN 325 MG TABLET PO PRN (09:00)
[2022-06-25] MEDS ORDERED: ONDANSETRON 4 MG/2 ML VIAL IVP PRN (09:00)
[2022-06-25] MEDS ORDERED: SODIUM CHLORIDE FLUSH 0.9% 10 ML SYRINGE IVP PRN (09:00)
[2022-06-25] MEDS ORDERED: oxyCODONE 5 MG TABLET PO PRN (09:00)
--- NOTE | 2022-06-25 09:25 | CT Report ---
PROCEDURE: ANGIO HEAD W/WO INDICATIONS: R sided weakness CONTRAST: 80ml Omnipaque 300 TECHNIQUE: Precontrast 4.5 mm thick angled axial sections acquired from the foramen magnum to the vertex. Afte r the administration of intravenous contrast, 1 mm thick sections acquired through the [place] is. Postcontrast 4.5 mm thick sections then re-acquired from the foramen magnum to the vertex. 3-di mensional fatuzan-mweapimme-rviesnxzwq (MIP) and/or volume rendering reformats were acquired of the c entral intracranial vasculature. For radiation dose reduction, the following was used: automated ex posure control, adjustment of mA and/or kV according to patient size. COMPARISON: Relation is made with the accompanying noncontrast head CT as well as the accompanying n lori CT angiogram, 06/25/2022. FINDINGS: Image quality: Excellent. Anterior circulation: Intracranial internal carotid arteries are normal in size and flow. The flow within the paired anterior cerebral arteries is normal and symmetric. The flow within the middle cer ebral arteries is normal and symmetric. The anterior communicating artery is seen. No aneurysms are seen. Posterior circulation: Visualized portions of the vertebral arteries demonstrate normal caliber, and join to form a normal appearing basilar artery. Flow within the posterior cerebral arteries is norm al and symmetric. No aneurysms are seen. CSF spaces: Ventricles are normal in size and shape. Basal cisterns are patent. No extra-axial flu id collections. Brain: There is a remote infarction seen involving the right medel radiata. No midline shift. No in tracranial bleeds or masses. Salguero-white matter interface appears intact. Skull and face: Calvarium and facial bones appear intact, without suspicious lesions. Sinuses: Visualized sinuses and mastoids are clear. IMPRESSION: No significant intracranial arterial abnormalities are seen. Remote infarction of the right medel radiata. No masses or abnormal enhancement can be seen. Note: No significant discrepancy from the preliminary report. Reviewed by: Ihs Abreu MD on 06/25/2022 8:24 AM [facility] Approved by: Ish Abreu MD on 06/25/2022 8:24 AM [facility] Station ID: [id number]
--- NOTE | 2022-06-25 09:27 | CT Report ---
PROCEDURE: ANGIO NECK W INDICATIONS: R sided weakness CONTRAST: 80ml Omnipaque 300 TECHNIQUE: After the administration of intravenous contrast, 1.5 mm axial sections acquired from the aortic arch to the [place]. Coronal 3-D maximum intensity projection (MIP) and/or volume rendering ref ormats were then performed. For radiation dose reduction, the following was used: automated exposur e control, adjustment of mA and/or kV according to patient size. COMPARISON: Correlation is made with the accompanying head CT and head CT angiogram, with 06/25/2022. FINDINGS: Image quality: Excellent. Carotid system: The great vessels demonstrate a conventional anatomy as they arise from the aortic a rch. The origins of the common carotid arteries appear patent. The common carotid arteries demonstr ate normal calibers and courses. The bifurcation regions demonstrate atherosclerotic irregularity an d calcification. The internal carotid arteries demonstrate normal caliber and course. Posterior circulation: The origins of the vertebral arteries appear patent. The more superior porti ons of the vertebral arteries demonstrate normal course and caliber. The left vertebral artery is dom inant to the right. Soft tissues: Visualized neck soft tissues demonstrate no suspicious abnormalities. The thyroid is normal in size and there are no incidental findings. Bones: No suspicious bony lesions. Visualized cervical spine appears normally aligned. IMPRESSION: No hemodynamically significant stenosis is seen. Note: No significant discrepancy from the preliminary report. The estimate of stenosis included in the report of the imaging study was calculated using the NASCET method Reviewed by: Ish Abreu MD on 06/25/2022 8:26 AM [facility] Approved by: Ish Abreu MD on 06/25/2022 8:26 AM [facility] Station ID: [id number]
[2022-06-25] MEDS: SODIUM CHLORIDE FLUSH 0.9% 10 ML SYRINGE IVP SCH ×2 (10:07→16:10)
--- NOTE | 2022-06-25 11:34 | PHARMACY PROGRESS NOTE ---
- Best Possible Medication History Admit Date and Time: 06/25/22 0903 Processed by: Pharmacy Medication History completed: Yes Patient Interview: Pt interview ONLY source (pt isn't taking any meds) As the person ultimately responsible for medication therapy, providers are able to order a medication from an existing home medication list in [facility] via the "Reconcile Routine" prior to Confirmation of that medication by patient support assistant. Such practice is discouraged except when the physician, in their clinical judgment, deems that a medical need exists for a medication without regard to previous use.
--- NOTE | 2022-06-25 13:37 | HISTORY & PHYSICAL EXAMINATION ---
Chief Complaint - Chief Complaint Chief Complaint: Focal neuro deficit History of Present Illness - Admitted From Admitted From:: [facility] ED - History Obtained From Records Reviewed: Y History obtained from: ED Exam Limitations: None - History of Present Illness HPI Comment/Other: 67 year old male with 30 year history of smoking and alcohol use, with no significant medical history presented to ED for evaluation of right-sided facial droop, slurred speech, and right-sided weakness that was first noticed at 6:00 this morning when he woke up. His noticed that his symptoms completely resolved for two minutes and then reoccurred. Per the patient he woke up at 3:00 and felt fine at that time. During transit, EMS noticed that his symptoms periodically worsened and improved without resolution. He does not take a blood thinner. He denies history of stroke. He is positive for history of urinary retention and self-catheter several times per day. He denies recent trauma or injury. On his neuro exam in the ED, he exhibited right sided facial droop, left gaze preference, right arm and leg weakness, and mildly slurred speech. His NIH Stroke Scale score was 6. He was keenly alert, answered month and age correctly, blinked both eyes and squeezed hand. Partial gaze palsy. No visual loss. Minor facial paralysis. Right arm some effort against gravity, no left arm drift. Right leg drift but doesn't hit the bed, no left leg drift. Absent limb ataxia. No aphasia. Mild-moderate dysarthria, slurring but can be understood. No extinction/inattention. On admission for observation, he has reoccurrence of right sided facial droop, partial gaze palsy, right arm and leg weakness, and moderate slurred speech. He reports no headache, abdominal pain, chest pain, shortness of breath, nausea, or numbness. He reports drinking 5-6 beers per night and smoking 1/2-1 pack cigarettes since age 20 years old. He takes no medications. He has two siblings, both living and healthy. Both his parents in their mid-80s. His dad from heart problems and his mom from Alzheimer disease. No reported family history of TIA/stroke. History - Past Medical History Cardiovascular: reports: None Respiratory: reports: None Neuro: reports: None Endocrine/Autoimmune: reports: None GI: reports: None : reports: None HEENT: reports: None Psych: reports: None Musculoskeletal: reports: Osteoarthritis Derm: reports: None MRSA Hx?: No Other Past Medical History: self cath 4-6x/day - Past Surgical History HEENT: reports: Cataracts - Family & Social History Family History: Mother: , Alzheimer's Disease, Father: , CAD, Sister: Alive and Well, Brother: Alive and Well Living arrangement: At home Living Situation: With spouse/s.o. - Substance History Use: Uses substance without health or social issues: Tobacco (1/2 - 1 pack per day for 30 years), Alcohol (5-6 beers per night) Dependence: Experiences withdrawal or developed tolerances: NONE Tobacco Details: Cigarettes - POLST Patient has POLST: No POLST Status: Full Code Meds/Allgy - Home Medications Home Medications: Ambulatory Orders Medication Instructions Recorded Confirmed No Known Home Medications 01/20/20 06/25/22 - Allergies Allergies/Adverse Reactions: Allergies Allergy/AdvReac Type Severity Reaction Status Date / Time No Known Drug Allergies Allergy Verified 06/25/22 07:10 Review of Systems - Constitutional Constitutional: reports: Weakness (Right arm and leg weakness. Right sided facial droop.) - Eyes Eyes: reports: Other (Left gaze preference) - Respiratory Respiratory: reports: Cough (Started after he ate a cookie 30 minutes ago, most likely benign.) - Neurological Neurological: reports: Focal weakness (Right side facial droop, right arm and leg weakness.), Slurred speech - Other Findings Other Findings: All other ROS negative Prior Level of Functionality: Active, fully functional. No previous neurologic deficits. Exam - Vital Signs Vital Signs: Vital Signs x48h Temp Pulse Pulse Resp BP BP Pulse Ox 06/25/22 09:45 36.5 C 61 18 138/79 H 94 06/25/22 09:10 79 18 142/93 H 96 06/25/22 08:14 64 18 129/95 H 95 06/25/22 07:47 66 18 154/89 H 96 06/25/22 07:37 60 17 154/89 H 97 06/25/22 07:04 36.8 C 65 18 135/78 H 98 - Physical Exam General Appearance: positive: No acute distress, Other (Overweight man with weight mostly in his abdomen, sitting up at 30 degrees in bed. His cheeks are mamadou colored with multiple telangiectasias. His nose is mildly bulbous.) Eyes Bilateral: positive: Normal inspection, PERRL, Other (Left gaze preference) ENT: positive: ENT inspection nml, Pharynx nml, No signs of dehydration Neck: positive: Nml inspection, Thyroid nml, No JVD, Trachea midline Respiratory: positive: Chest non-tender, No respiratory distress, Breath sounds nml Cardiovascular: positive: Regular rate & rhythm, No murmur, No gallop Peripheral Pulses: positive: 2+ Abdomen: positive: Non-tender, Nml bowel sounds Skin: positive: Color nml, Warm, Other (telangiectasias on face, bilat cheeks) Extremities: positive: Non-tender, Nml appearance, No pedal edema, Other (Right arm and leg weakness) Neurologic/Psychiatric: positive: Oriented x3, Weakness, Facial droop, Slurred/abnml speech Sepsis Event Note (H) - Evaluation Current Stage of Sepsis: Ruled out (No tachycardia, tachypnea, leukocytosis, fever) Conclusion/Plan - Problem List (1) Focal neurological deficit Conclusion/Plan: Most likely due to TIA due to focal weakness in right arm and leg, right sided facial droop, right side gaze palsy, and mild-moderate slurred speech and positive ischemic changes on MRI. Will consider Stroke if symptoms continue at [address]. No lesion on CT or MRI indicating tissue , but may be too soon to see changes. Patient is at increased risk of Ischemic Stroke due to smoking, ethnicity, male gender, poor diet, and alcohol misuse. Other conditions considered, but ruled out: 1. Space occupying lesion (intracranial hemorrhage, abscess or mass): Negative MRI. No fever, leukocytosis, headache, or vomiting. 2. Multiple Sclerosis: Negative MRI. No lasting neurologic deficits lasting longer than those of TIA. No positive family history. 3. Hypoglycemia: Glucose 110 4. Seizure with post-seizure paralysis: No incontinence, tongue biting, post- event altered mental status. 5. Complex migraine: No DIAMOND or history of migraines, no nausea. 6. Labyrinthine disorders: No vertigo or disequilibrium. Plan: Observation. Will continue to monitor symptoms using the NIH Stoke Scale. Will continue to monitor his blood pressure for hypertension risk factor. May recommend starting a antihypertensive medication. Will check fasting blood sugar tomorrow for DM2 check. Will administer full dose of aspirin (325 mg), atorvastatin 80 mg, gentle hydration, bed rest for next several hours. Will order Telemetry to r/o Atrial Fibrillation. Will order Echocardiogram to r/o Patent Foramen [place]. Advised patient that prevention of stroke involves risk reduction, including cigarette and alcohol cessation and diet modification to include more fruits and vegetables. (2) Smoking Conclusion/Plan: May give a nicotine patch if needed for smoking cessation to reduce risk for TIA/stroke. (3) Alcohol abuse Conclusion/Plan: Will give banana bag since patient drinks multiple beers nightly. Recommended alcohol cessation to reduce risk factors for TIA/stroke. - Lab Results Fish Bones: 06/25/22 07:24 06/25/22 07:24 - Diagnostic Imaging Results Diagnostic Imaging Results: positive: Final report reviewed Diagnostic Imaging Results Comments: Head and Neck CT: No signs of large vessel occlusion but evidence of atherosclerotic disease. Brain MRI: No acute intracranial process. Mild atrophy and chronic microvascular ischemic changes. - EKG Results EKG Interpreted Independently: No EKG Comparison: Old EKG unavailable EKG Findings: Rate 59, normal sinus rhythm, no prolonged QT or ST elevation
--- NOTE | 2022-06-25 14:14 | MRI Report ---
PROCEDURE: BRAIN WO INDICATIONS: R sided weakness/aphasia TECHNIQUE: Noncontrast axial T1 spin echo, axial T2 fast spin echo, sagittal and axial FLAIR, coronal T2 fast sp in echo, axial gradient echo, axial diffusion and ADC through the brain. COMPARISON: CTA head and neck 06/25/2022 FINDINGS: Image quality: Excellent. CSF Spaces: Basal cisterns are patent. No extra-axial fluid collections. Ventricles are normal in size and shape. Brain: No intracranial masses or hemorrhage. Salguero/white matter interface is normal. Brainstem appe ars normal. Diffusion-weighted images demonstrate no acute ischemic insult. Old right medel radiata infarction.. Normal intravascular flow voids are present. Skull and face: Calvarium has normal marrow signal. Orbits appear normal. Sinuses: Sinuses and mastoids are clear. IMPRESSION: 1. No acute intracranial process. 2. Mild atrophy and chronic microvascular ischemic changes. Reviewed by: Teresa Umaña MD on 06/25/2022 2:13 PM PST Approved by: Teresa Umaña MD on 06/25/2022 2:13 PM [id number] Station ID: [id number]
[2022-06-25] MEDS: MULTIVITAMIN 10 ML, THIAMINE INJ 100 MG, MAGNESIUM SULFATE 2 GM, FOLIC ACID INJ 1 MG in... IV SCH ×5 (18:39)
[2022-06-26] MEDS: SODIUM CHLORIDE FLUSH 0.9% 10 ML SYRINGE IVP SCH ×3 (00:48→16:07)
[2022-06-26 04:52] LABS: BASOPHILS % (AUTO) 0.4 %; EOSINOPHILS # (AUTO) 0.2 10^3/uL (0.0-0.7); EOSINOPHILS % (AUTO) 2.4 %; HCT - HEMATOCRIT 39.6 % (42.0-52.0); HGB - HEMOGLOBIN 13.7 g/dL (14.0-18.0); LYMPHOCYTES # (AUTO) 1.9 10^3/uL (1.5-3.5); MEAN CORPUSCULAR HEMOGLOBIN 33.1 pg (27.0-31.0); MEAN CORPUSCULAR HGB CONC 34.6 g/dL (32.0-36.0); MEAN CORPUSCULAR VOLUME 95.7 fL (80.0-94.0); MEAN PLATELET VOLUME 9.4 fL (7.4-11.4); MONOCYTES # (AUTO) 0.5 10^3/uL (0.0-1.0); MONOCYTES % (AUTO) 7.8 %; NEUTROPHILS # (AUTO) 4.1 10^3/uL (1.5-6.6); NEUTROPHILS % (AUTO) 61.1 %; PLT - PLATELET COUNT 167 10^3/uL (130-450); RED BLOOD COUNT 4.14 10^6/uL (4.70-6.10); WHITE BLOOD COUNT 6.7 x10^3/uL (4.8-10.8)
[2022-06-26 04:58] LABS: PT - PROTHROMBIN TIME 10.9 secs (9.9-12.6)
[2022-06-26 05:13] LABS: CHOL/HDL RATIO 7.2 (<5.0); CHOLESTEROL 244 mg/dL; HDL CHOLESTEROL 34 mg/dL; LDL CHOLESTEROL,CALCULATED 184 mg/dL; LDL/HDL RATIO 5.4 (<3.6); TRIGLYCERIDES 128 mg/dL; VLDL CHOLESTEROL 26 mg/dL
[2022-06-26] MEDS: ASPIRIN 325 MG TABLET PO SCH (08:35)
[2022-06-26] MEDS: MULTIVITAMIN 10 ML, THIAMINE INJ 100 MG, MAGNESIUM SULFATE 2 GM, FOLIC ACID INJ 1 MG in... IV SCH ×5 (09:32)
--- NOTE | 2022-06-26 11:25 | PROVIDER PROGRESS NOTE ---
<Chasity Leung - Last Filed: 06/26/22 17:20> Subjective - Prog Note Date Prog Note Date: 06/26/22 Prog Note Time: 11:21 - Subjective Pt reports feeling: Improved Subjective: 67 year old male with 30 year history of smoking and alcohol use, with no significant known medical history presented to the ED yesterday for evaluation of right side facial droop, slurred speech, and right side weakness that was noticed at 6:00 on 06/24/22 when the patient woke up. His noticed that his symptoms completely resolved for 2 minutes and then reoccurred. During transit, EMS noticed that his symptoms periodically worsened and improved without resolution. He does not take a blood thinner or any other medications. He reports drinking 5-6 beers per night and smoking 1/2-1 pack cigarettes since age 20 years old. He denies history of stroke. No reported family history of TIA/stroke. Yesterday, his NIH Stroke Score was 6. Per PT, he presents with atypical nystagmus with both eyes drifting to the left. There is no convergence. He has some smooth eye movement but then the right eye drifts back. They were able to get him up with a walker using 2-person assist. He has decent strength but coordination is diminished. His passive range of motion is good. He has already started using his left arm to assist in movement of his right arm. His sensation is intact. On exam, he reports that his right arm and leg don't feel as weak to him as yesterday. He is able to lift his right arm and leg against gravity and hold it for a couple seconds. His speech is improved from yesterday with mild slurring. He has mild right side facial droop that is improved from yesterday. His right eye passively drifts to the left but he is able to consciously focus on me when standing in front of him. He denies headache, abdominal pain, chest pain, shortness of breath, nausea, and numbness. Objective - Vital Signs/Intake & Output Vital Signs: Vital Signs x48h Temp Pulse Resp BP Pulse Ox 06/26/22 09:00 36.6 C 65 18 151/70 H 95 06/26/22 04:37 36.6 C 63 16 129/82 H 96 Intake & Output: Intake & Output 01/06/24/22 06/25/22 06/26/22 23:59 23:59 23:59 23:59 Intake Total 1500 1015.2 Output Total 3450 800 Balance -1950 215.2 - Objective General Appearance: positive: No acute distress, Alert Eyes Bilateral: positive: PERRL, No lid inflammation, Conjunctivae nml, No scleral icterus, Other (atypical nystagmus, no convergence) ENT: positive: ENT inspection nml, Pharynx nml, No signs of dehydration Neck: positive: Nml inspection, Thyroid nml, No JVD, Trachea midline Respiratory: positive: Chest non-tender, No respiratory distress, Breath sounds nml Cardiovascular: positive: Regular rate & rhythm, No murmur, No gallop Peripheral Pulses: 2+ Radial (R), 2+ Radial (L), 2+ Dorsalis pedis (R), 2+ Dorsalis pedis (L) Abdomen: positive: Non-tender, Nml bowel sounds, No distention Skin: positive: Color nml, No rash, Warm Extremities: positive: Non-tender, Nml appearance, No pedal edema, Other (full ROM of left arm and left leg. Weakness of right arm and right leg.) Neurologic/Psychiatric: positive: Oriented x3, Sensation nml, Weakness, Facial droop, Slurred/abnml speech - Lab Results Fish Bones: 06/26/22 04:34 06/25/22 07:24 Other Labs: Lab Results x24hrs 06/26/22 06/26/22 06/26/22 Range/Units 04:34 04:34 04:34 WBC 6.7 (4.8-10.8) x10^3/uL RBC 4.14 L (4.70-6.10) 10^6/uL Hgb 13.7 L (14.0-18.0) g/dL Hct 39.6 L (42.0-52.0) % MCV 95.7 H (80.0-94.0) fL MCH 33.1 H (27.0-31.0) pg MCHC 34.6 (32.0-36.0) g/dL RDW 13.0 (12.0-15.0) % Plt Count 167 (130-450) 10^3/uL MPV 9.4 (7.4-11.4) fL Neut # (Auto) 4.1 (1.5-6.6) 10^3/uL Lymph # (Auto) 1.9 (1.5-3.5) 10^3/uL Real # (Auto) 0.5 (0.0-1.0) 10^3/uL Eos # (Auto) 0.2 (0.0-0.7) 10^3/uL Baso # (Auto) 0.0 (0.0-0.1) 10^3/uL Absolute Nucleated RBC 0.00 x10^3/uL Nucleated RBC % 0.0 /100WBC PT 10.9 (9.9-12.6) secs INR 1.0 (0.8-1.2) Triglycerides 128 ( - 149) mg/dL Cholesterol 244 H ( - 199) mg/dL LDL Cholesterol, Calc 184 H ( - 129) mg/dL VLDL Cholesterol 26 mg/dL HDL Cholesterol 34 L (60 - ) mg/dL LDL/HDL Ratio 5.4 (<3.6) Cholesterol/HDL Ratio 7.2 (<5.0) - Diagnostic Imaging Diagnostic Imaging Results: positive: Final report reviewed Diagnostic Imaging Comments: Telemetry: sinus rhythm/sinus bradycardia. No indication of atrial fibrillation. Transthoracic echocardiogram: mild concentric left ventricular hypertrophy. O verall left ventricular systolic function is normal with EF 55-60%. Diastolic dysfuction is present. Mild right ventricular enlargement. Aortic valve leaflets are mildly calcified. No evidence of aortic stenosis. Trace aortic regurgitation. Thickening of mitral valve leaflets. No mitral stenosis. Mild mitral regurgitation. Trace tricuspid regurgitation. Trace pulmonic regurgitation. No pericardial effusion. Evidence of patent foramen ovale. Aortic root mildly dilated. Inferior vena cava dilated. CT brain and neck: no signs of large vessel occlusion but evidence of atherosclerotic disease. Brain MRI: no acute intracranial process. Mild atrophy and chronic microvascular ischemic changes. - Other Results/Comments Other Results/Comments: Per inpatient PT/OT: He has atypical nystagmus with eyes drifting to the left and no convergence. They indicate some smooth eye movement, but then eyes drift back. They got him up with a walker using 2-person assist. He has decent strength but his coordination is impacted. His passive range of motion is intact. His sensation is intact. Sepsis Event Note (H) - Evaluation Current Stage of Sepsis: Ruled out (No tachycardia, tachypnea, leukocytosis, fever) Assessment/Plan - Problem List (1) Focal neurological deficit Impression: Most likely due to TIA due to focal weakness in right arm and leg, right-sided facial droop, right side gaze palsy, and mild-moderate slurred speech and positive ischemic changes on MRI. Will consider stroke if symptoms do not resolve within 72 hours. No lesion on CT or MRI indicating tissue , but may be too soon to see changes. He is at increased risk of ischemic stroke due to hyperlipidemia, smoking, evidence of patent foramen ovale on transthoracic echocardiogram, ethnicity, gender, poor diet, and alcohol misuse. Will follow up on fasting glucose for DM2 check. No evidence of atrial fibrillation on telemetry. Continue blood pressure monitoring, currently within normal range. Plan: Will begin inpatient rehab. Will focus on risk reduction: continue 80 mg atorvastatin, cessation of alcohol and cigarette smoking, and diet consisting of fruits and vegetables. (2) Smoking Impression: Will consider a nicotine patch if needed for smoking cessation for risk reduction of cardiovascular event including OR and stroke. (3) Alcohol abuse Impression: Given a banana bag. Electrolytes within normal range. Plan: Eat regular diet in hospital. Advised patient that cessation of alcohol reduces risk of cardiovascular event including OR and stroke. (4) Hyperlipemia Impression: Total cholesterol: 244 LDL cholesterol: 184 HDL cholesterol: 34 T ASCVD risk score: 26.2% risk of cardiovascular event (coronary or stroke , or non-fatal OR or stroke) Plan: Risk reduction: continue 80 mg atorvastatin (high-intensity statin), eat a diet consisting of lean protein, fruits, and vegetables. Cessation of alcohol and cigarettes. Qualifiers: Hyperlipidemia type: unspecified Qualified Code(s): E78.5 - Hyperlipidemia, unspecified <Norma Diane L - Last Filed: 06/26/22 17:50> Objective - Vital Signs/Intake & Output Vital Signs: Vital Signs x48h Temp Pulse Resp BP BP BP Pulse Ox 06/26/22 16:30 36.5 C 63 20 142/76 H 95 06/26/22 13:37 139/79 H 145/81 H 06/26/22 13:00 36.6 C 62 18 145/72 H 96 Intake & Output: Intake & Output 06/23/22 06/24/22 06/25/22 06/26/22 23:59 23:59 23:59 23:59 Intake Total 1500 1355.2 Output Total 3450 1350 Balance -1950 5.2 - Lab Results Fish Bones: 06/26/22 04:34 06/25/22 07:24 Other Labs: Lab Results x24hrs 06/26/22 06/26/22 06/26/22 Range/Units 04:34 04:34 04:34 WBC 6.7 (4.8-10.8) x10^3/uL RBC 4.14 L (4.70-6.10) 10^6/uL Hgb 13.7 L (14.0-18.0) g/dL Hct 39.6 L (42.0-52.0) % MCV 95.7 H (80.0-94.0) fL MCH 33.1 H (27.0-31.0) pg MCHC 34.6 (32.0-36.0) g/dL RDW 13.0 (12.0-15.0) % Plt Count 167 (130-450) 10^3/uL MPV 9.4 (7.4-11.4) fL Neut # (Auto) 4.1 (1.5-6.6) 10^3/uL Lymph # (Auto) 1.9 (1.5-3.5) 10^3/uL Real # (Auto) 0.5 (0.0-1.0) 10^3/uL Eos # (Auto) 0.2 (0.0-0.7) 10^3/uL Baso # (Auto) 0.0 (0.0-0.1) 10^3/uL Absolute Nucleated RBC 0.00 x10^3/uL Nucleated RBC % 0.0 /100WBC PT 10.9 (9.9-12.6) secs INR 1.0 (0.8-1.2) Triglycerides 128 ( - 149) mg/dL Cholesterol 244 H ( - 199) mg/dL LDL Cholesterol, Calc 184 H ( - 129) mg/dL VLDL Cholesterol 26 mg/dL HDL Cholesterol 34 L (60 - ) mg/dL LDL/HDL Ratio 5.4 (<3.6) Cholesterol/HDL Ratio 7.2 (<5.0)
[2022-06-26] MEDS ORDERED: HYDROmorphone 0.5 MG/0.5 ML SYRINGE IVP PRN (12:31)
[2022-06-26] MEDS: ATORVASTATIN 40 MG TABLET PO SCH (21:27)
[2022-06-27] MEDS: SODIUM CHLORIDE FLUSH 0.9% 10 ML SYRINGE IVP SCH ×3 (01:09→20:49)
[2022-06-27] MEDS: ASPIRIN 325 MG TABLET PO SCH (09:44)
[2022-06-27] MEDS: MULTIVITAMIN 10 ML, THIAMINE INJ 100 MG, MAGNESIUM SULFATE 2 GM, FOLIC ACID INJ 1 MG in... IV SCH ×5 (09:46)
[2022-06-27] MEDS: polyethylene glycoL 3350 17 GM PACKET PO SCH (10:07)
--- NOTE | 2022-06-27 14:06 | PROVIDER PROGRESS NOTE ---
Subjective - Prog Note Date Prog Note Date: 06/27/22 Prog Note Time: 14:42 - Subjective Pt reports feeling: Improved Subjective: 67 year old male with 30 year history of smoking and alcohol use, with no significant known medical history presented to the ED 2 days ago for evaluation of right side facial droop, slurred speech, and right side weakness that was noticed at 6:00 on 06/24/22 when the patient woke up. His noticed that his symptoms completely resolved for 2 minutes and then reoccurred. During transit, EMS noticed that his symptoms periodically worsened and improved without resolution. He does not take a blood thinner or any other medications. He reports drinking 5-6 beers per night and smoking 1/2-1 pack cigarettes since age 20 years old. He denies history of stroke. No reported family history of TIA/stroke. In the ED, his NIH Stroke Score was 6. Per PT yesterday, he had atypical nystagmus with both eyes drifting to the left. There is no convergence. He had some smooth eye movement but then the right eye drifted back. They were able to get him up with a walker using 2-person assist. He had decent strength but coordination was diminished. His passive range of motion was good. He had already started using his left arm to assist in movement of his right arm. His sensation was intact. On exam yesterday, he reported that his right arm and leg did not feel as weak as on presentation. He was able to lift his right arm and leg against gravity and hold it for a couple seconds. His speech was improved with mild slurring. He had mild right side facial droop that is improved. His right eye passively dr ifted to the left but he was able to consciously focus on objects in front of him. He denied headache, abdominal pain, chest pain, shortness of breath, nausea, and numbness. Today, he says he feels much better. He reports that his right arm and leg feel much stronger and he has increased use. He is able to lift his right arm against gravity above his shoulder and hold it for a few seconds. He has good ladle puller strength in his right hand. He is able to provide muscle strength against resistance with his right arm and leg. He was able to walk slowly with some assistance earlier today. His speech is improved with minimal slurring. He is more talkative than yesterday and he is making jokes. He has mild right side facial droop that is improved from yesterday. When he smiled both sides of his mouth elevated. He is able to maintain eye contact with his right eye for a couple seconds before passively drifting to the left. I was standing on his right side and he was able to move both his eyes across the midline and look at me without moving his head. He says that his head still doesn't feel "quite right" and that he can tell his thoughts are slower than usual. He denies headache, abdominal pain, chest pain, shortness of breath, nausea, tingling or numbness in extremities. He says that he is ready to go home tomorrow. Objective - Vital Signs/Intake & Output Intake & Output: Intake & Output 06/24/22 06/25/22 06/26/22 06/27/22 23:59 23:59 23:59 23:59 Intake Total 1500 2770.4 460 Output Total 3450 3400 550 Balance -1950 -629.6 -90 - Objective General Appearance: positive: No acute distress, Alert Eyes Bilateral: positive: PERRL, No lid inflammation, Conjunctivae nml, No scleral icterus, Other Eyes: OD Abnormal EOM (left gaze preference, but his eye can cross the midline and make eye contact on an object on the right side of his body without him moving his head and hold contact for a couple seconds) ENT: positive: ENT inspection nml, Pharynx nml, No signs of dehydration Neck: positive: Nml inspection, Thyroid nml, No JVD, Trachea midline Respiratory: positive: Chest non-tender, No respiratory distress, Breath sounds nml Cardiovascular: positive: Regular rate & rhythm, No murmur, No gallop Peripheral Pulses: 2+ Radial (R), 2+ Radial (L), 2+ Dorsalis pedis (R), 2+ Dorsalis pedis (L) Abdomen: positive: Non-tender, Nml bowel sounds, No distention Skin: positive: Color nml, No rash, Warm Extremities: positive: Non-tender, Full ROM, Nml appearance, No pedal edema Neurologic/Psychiatric: positive: Oriented x3, Sensation nml, Mood/affect nml, Weakness (Mild in right arm and right leg but much improved from yesterday), Facial droop (mild right side facial droop that is improved from yesterday), Slurred/abnml speech (mild, improved from yesterday) - Lab Results Fish Bones: 06/26/22 04:34 06/25/22 07:24 - Diagnostic Imaging Diagnostic Imaging Results: positive: Final report reviewed Diagnostic Imaging Comments: Telemetry: sinus rhythm/sinus bradycardia. No indication of atrial fibrillation. Transthoracic echocardiogram: mild concentric left ventricular hypertrophy. Overall left ventricular systolic function is normal with EF 55-60%. Diastolic dysfuction is present. Mild right ventricular enlargement. Aortic valve leaflets are mildly calcified. No evidence of aortic stenosis. Trace aortic regurgitation. Thickening of mitral valve leaflets. No mitral stenosis. Mild mitral regurgitation. Trace tricuspid regurgitation. Trace pulmonic regurgitation. No pericardial effusion. Evidence of patent foramen ovale. Aortic root mildly dilated. Inferior vena cava dilated. CT brain and neck: no signs of large vessel occlusion but evidence of atherosclerotic disease. Brain MRI: no acute intracranial process. Mild atrophy and chronic microvascular ischemic changes. Sepsis Event Note (H) - Evaluation Current Stage of Sepsis: Ruled out (No tachycardia, tachypnea, leukocytosis, fever) Assessment/Plan - Problem List (1) Focal neurological deficit Impression: Most likely TIA due to focal weakness in right arm and leg, right-sided facial droop, right side gaze palsy, and mild-moderate slurred speech and positive isch emic changes on MRI. CT and MRI showed no lesion indicating tissue . May have been too soon to see changes on imaging. He is at increased risk of ischemic stroke due to hyperlipidemia, smoking, evidence of patent foramen ovale on transthoracic echocardiogram, ethnicity, gender, poor diet, and alcohol misuse. No evidence of atrial fibrillation on telemetry. Blood pressure is elevated. Plan: Could repeat MRI for ischemic lesion to diagnose stroke, but will not change treatment plan so no need. Will begin inpatient rehab. Will focus on risk reduction: continue 80 mg atorvastatin, cessation of alcohol and cigarette smoking, and diet consisting of fruits and vegetables. May consider antih ypertensive and anti platelet medication (2) Smoking Impression: Will consider a nicotine patch if needed for smoking cessation for risk reduction of cardiovascular event including AR and stroke. (3) Alcohol abuse Impression: Electrolytes within normal range. Plan: Will discontinue banana bag. Continue eating normal diet with lean protein, fruits, and vegetables. Advised patient that cessation of alcohol reduces risk of cardiovascular event including AR and stroke. (4) Hyperlipemia Impression: Total cholesterol: 244 LDL cholesterol: 184 HDL cholesterol: 34 T ASCVD risk score: 26.2% risk of cardiovascular event (coronary or stroke , or non-fatal AR or stroke) Plan: Risk reduction: continue 80 mg atorvastatin (high-intensity statin), eat a diet consisting of lean protein, fruits, and vegetables. Cessation of alcohol and cigarettes. Qualifiers: Hyperlipidemia type: unspecified Qualified Code(s): E78.5 - Hyperlipidemia, unspecified Qualifiers: Hyperlipidemia type: unspecified Qualified Code(s): E78.5 - Hyperlipidemia, unspecified
[2022-06-27] MEDS: ATORVASTATIN 40 MG TABLET PO SCH (20:51)
[2022-06-28] MEDS: SODIUM CHLORIDE FLUSH 0.9% 10 ML SYRINGE IVP SCH ×3 (02:58→17:00)
[2022-06-28] MEDS: PRENATAL VITAMIN TABLET PO SCH (09:36)
[2022-06-28] MEDS: THIAMINE 100 MG TABLET PO SCH (09:37)
[2022-06-28] MEDS: SENNA 8.6 MG TABLET PO SCH (09:37)
[2022-06-28] MEDS: ASPIRIN 325 MG TABLET PO SCH (09:37)
[2022-06-28] MEDS: polyethylene glycoL 3350 17 GM PACKET PO SCH (09:37)
[2022-06-28] MEDS: DOCUSATE SODIUM 250 MG CAPSULE PO SCH (09:37)
--- NOTE | 2022-06-28 10:21 | PROVIDER PROGRESS NOTE ---
Subjective - Prog Note Date Prog Note Date: 06/28/22 Prog Note Time: 10:16 - Subjective Pt reports feeling: Improved Subjective: 67 year old male with 30 year history of smoking and alcohol use, with no significant known medical history presented to the ED via EMS 3 days ago for evaluation of right side facial droop, slurred speech, and right side weakness that was noticed the morning of 06/24/22 by the patient and his . In the ED, his NIH stroke score was 6. His symptoms have been steadily improving every day. Today Objective - Vital Signs/Intake & Output Vital Signs: Vital Signs x48h Temp Pulse Resp BP Pulse Ox 06/28/22 08:02 36.3 C L 69 18 141/77 H 93 06/28/22 05:50 36.7 C 67 18 149/78 H 96 Intake & Output: Intake & Output 06/25/22 06/26/22 06/27/22 06/28/22 23:59 23:59 23:59 23:59 Intake Total 1500 2770.4 2216.66 400 Output Total 3450 3400 2000 1100 Balance -1950 -629.6 216.66 -700 - Lab Results Fish Bones: 06/26/22 04:34 06/25/22 07:24 - Diagnostic Imaging Diagnostic Imaging Results: positive: Final report reviewed Diagnostic Imaging Comments: Telemetry: sinus rhythm/sinus bradycardia. No indication of atrial fibrillation. Transthoracic echocardiogram: mild concentric left ventricular hypertrophy. Overall left ventricular systolic function is normal with EF 55-60%. Diastolic dysfuction is present. Mild right ventricular enlargement. Aortic valve leaflets are mildly calcified. No evidence of aortic stenosis. Trace aortic regurgitation. Thickening of mitral valve leaflets. No mitral stenosis. Mild mitral regurgitation. Trace tricuspid regurgitation. Trace pulmonic regurgitation. No pericardial effusion. Evidence of patent foramen ovale. Aortic root mildly dilated. Inferior vena cava dilated. CT brain and neck: no signs of large vessel occlusion but evidence of atherosclerotic disease. Brain MRI: no acute intracranial process. Mild atrophy and chronic microvascular ischemic changes. Sepsis Event Note (H) - Evaluation Current Stage of Sepsis: Ruled out (No tachycardia, tachypnea, leukocytosis, fever) Assessment/Plan - Problem List (1) Focal neurological deficit Impression: Most likely ischemic stroke due to focal weakness in right arm and leg, right- sided facial droop, right side gaze palsy, and mild-moderate slurred speech and positive ischemic changes on MRI. He has positive risk factors, including: hyperlipidemia, smoking, evidence of patent foramen ovale on transthoracic ec hocardiogram, ethnicity, gender, poor diet, and alcohol misuse. He continues to improve every day. CT and MRI showed no lesion indicating tissue , but most likely was just too soon to see changes on imaging. No evidence of atrial fibrillation on telemetry. Blood pressure continues to be elevated. Plan: Waiting to hear about placement at [facility] for inpatient rehab. PT/OT will continue to work with him here while waiting. Focus on risk reduction: 80 mg atorvastatin, cessation of alcohol and cigarette smoking, and healthy diet. Continue and vitamin B12. May consider antihypertensive and anti platelet medication. (2) Smoking Impression: Will consider a nicotine patch if needed for smoking cessation for risk reduction of cardiovascular event including ID and stroke. (3) Alcohol abuse Impression: Continue eating normal diet with lean protein, fruits, and vegetables. Advised patient that cessation of alcohol reduces risk of cardiovascular event including ID and stroke. (4) Hyperlipemia Impression: Total cholesterol: 244 LDL cholesterol: 184 HDL cholesterol: 34 T ASCVD risk score: 26.2% risk of cardiovascular event (coronary or stroke , or non-fatal ID or stroke) Plan: Risk reduction: continue 80 mg atorvastatin (high-intensity statin), eat a diet consisting of lean protein, fruits, and vegetables. Cessation of alcohol and cigarettes. Qualifiers: Hyperlipidemia type: unspecified Qualified Code(s): E78.5 - Hyperlipidemia, unspecified Qualifiers: Hyperlipidemia type: unspecified Qualified Code(s): E78.5 - Hyperlipidemia, unspecified Qualifiers: Hyperlipidemia type: unspecified Qualified Code(s): E78.5 - Hyperlipidemia, unspecified
--- NOTE | 2022-06-28 11:04 | DISCHARGE SUMMARY ---
"Discharge Summary Admit Date: 06/25/22 Discharge Date: 06/28/22 Discharging Provider: Norma Diane MD Primary Care Provider: Jeramy Anna MD Code Status: Attempt Resuscitation Condition at Discharge: Good Discharge Disposition: 02 Transfer Acute Care Hosp - DIAGNOSES Discharge Diagnoses with Status of Each Condition: 1. Left brain stroke with right residual 2. Tobacco abuse 3. Alcohol abuse 4. Hyperlipidemia 5. Hypertension - HPI History of Present Illness: 67 year old male with 30 year history of smoking and alcohol use, with no significant medical history presented to ED for evaluation of right-sided facial droop, slurred speech, and right-sided weakness that was first noticed at 6:00 this morning when he woke up. His noticed that his symptoms completely resolved for two minutes and then reoccurred. Per the patient he woke up at 3:00 and felt fine at that time. During transit, EMS noticed that his symptoms periodically worsened and improved without resolution. He does not take a blood thinner. He denies history of stroke. He is positive for history of urinary retention and self-catheter several times per day. He denies recent trauma or injury. On his neuro exam in the ED, he exhibited right sided facial droop, left gaze preference, right arm and leg weakness, and mildly slurred speech. His NIH Stroke Scale score was 6. He was keenly alert, answered month and age correctly, blinked both eyes and squeezed hand. Partial gaze palsy. No visual loss. Minor facial paralysis. Right arm some effort against gravity, no left arm drift. Right leg drift but doesn't hit the bed, no left leg drift. Absent limb ataxia. No aphasia. Mild-moderate dysarthria, slurring but can be understood. No extinction/inattention. On admission for observation, he has reoccurrence of right sided facial droop, partial gaze palsy, right arm and leg weakness, and moderate slurred speech. He reports no headache, abdominal pain, chest pain, shortness of breath, nausea, or numbness. He reports drinking 5-6 beers per night and smoking 1/2-1 pack cigarettes since age 20 years old. He takes no medications. He has two siblings, both living and healthy. Both his parents in their mid-80s. His dad from heart problems and his mom from Alzheimer disease. No reported family history of TIA/stroke. - Past Medical History Cardiovascular: reports: None Respiratory: reports: None Neuro: reports: None Endocrine/Autoimmune: reports: None GI: reports: None : reports: None HEENT: reports: None Psych: reports: None Musculoskeletal: reports: Osteoarthritis Derm: reports: None MRSA Hx?: No Other Past Medical History: self cath 4-6x/day - Past Surgical History HEENT: reports: Cataracts - CONSULTS | PROCEDURES Procedures: Head CT is without acute intracranial process. Head and neck CT angiogram with intracranial internal carotid arteries normal. Paired anterior cerebral arteries normal. Middle cerebral arteries normal. Anterior communicating artery is normal. Vertebral arteries normal caliber and normal. Flow and posterior cerebral arteries normal. Carotid system normal. Remote infarction seen involving the right medel radiata with no midline shift or intracranial bleed. Brain MRI was without acute intracranial process. Mild atrophy and chronic microvascular ischemic changes. It does not make reference to the medel radiata stroke. Echocardiogram has mild concentric left ventricular hypertrophy. Overall ejection fraction is 55 to 60%. Contrast injection of agitated saline is positive for small atrial shunt at rest and with Valsalva. Triglyceride 128, cholesterol 244, LDL 184, HDL 34, VLDL 26. - HOSPITAL COURSE Hospital Course: The patient initially had a stuttering course. He would have the right facial droop and dysarthria and then recover. Recurrence of facial droop and dysarthria then recover. And then, finally, permanent facial droop and dysarthria. He was not felt to be a TNKase candidate per Telestroke consult service we have w [place] due to the timeframe. There is no clear window of when he supposedly had begun symptoms or not. He was initially sleepy, with psychomotor slowing. But within 48 hours was already responding to questions and commands appropriately. He is very motivated and is already regaining speech, moving his right arm, and cooperating with physical therapy. They feel he would be an excellent candidate for inpatient rehab. We reached out to inpatient rehab at [facility] and they have accepted him. He was started on aspirin, statin. He did not require a nicotine patch. He also had no evidence of alcohol withdrawal. There is no tachycardia, diaphoresis, or excessive hypertension. During his stay blood pressure has been mildly elevated. He varies between 132 systolic and is as high as 151 systolic. Most blood pressures on the last 2 days were between 132 and 149 systolic. He would be a candidate for any hypertension treatment to modify risk factors for recurrent stroke. I have started him on lisinopril 5 mg po. .He was also given a banana bag. And given thiamine. I would recommend he continue thiamine and folate in the discharge setting for a few more weeks. I have also counseled him with regards to smoking and drinking. I warned him that he cannot do either Warm handoff was discussed with Dr. Merida who is the physician at the rehab unit at [facility]. At discharge temperature is He is a 5 foot 10 inch male that looks younger than stated age. 95 kg. Right facial droop, slight dysarthria. No dysphagia. He cannot move his right arm but uses his left arm to then brain picker his right arm to get it to where he wanted to go. He follows commands appropriately. Right leg is slower to move than left leg and not as strong as well. Neck is supple. No bruits. Lungs are clear. He has a regular rate and rhythm. The abdomen is soft, nontender. Greater than 30 minutes was spent coordinating discharge - ALLERGIES Allergies/Adverse Reactions: Allergies Allergy/AdvReac Type Severity Reaction Status Date / Time No Known Drug Allergies Allergy Verified 06/25/22 07:10 - MEDICATIONS Home Medications: Ambulatory Orders Medication Instructions Recorded Confirmed Aspirin [Varun] 325 mg PO DAILYWM tab 06/28/22 Atorvastatin [Lipitor] 80 mg PO QPM tab 06/28/22 Thiamine [Vitamin B-1] 100 mg PO DAILY tab 06/28/22 lisinopriL [Zestril] 5 mg PO DAILY #1 tablet 06/28/22 - LABS Result Diagrams: 06/26/22 04:34 06/29/22 04:48 - SEPSIS Current Stage of Sepsis: Ruled out (No tachycardia, tachypnea, leukocytosis, fever)"
--- NOTE | 2022-06-28 11:14 | Discharge Plan ---
Discharge Plan Problem Reviewed?: Yes Disposition: 02 Transfer Acute Care Hosp Condition: Good Prescriptions: lisinopriL [Zestril] 5 mg PO DAILY #1 tablet Diet: Cardiac Activity Restrictions: Activity as Tolerated Shower Restrictions: No Driving Restrictions: Yes (no driving until cleared by PCP) Weight Bearing: Full Weight No Smoking: If you smoke, Please STOP! Call for help. Follow-up with: Jeramy Anna MD [Primary Care Provider] -
--- NOTE | 2022-06-28 13:17 | PROVIDER PROGRESS NOTE ---
Progress Note June 28, 2022 1:07 PM Subjective: He is progressing really well. Now that he is got his head around the fact that he is can go to inpatient rehab he is cheerful, teasing his . Really wants to go home but excepting that he is got ago. needed a lot of reassurance about what Snehal Layton would be like. I was able to reassure her that I spoke to the doctor that we will be taking care of her and we went over his case. He had questions regarding alcohol use and possible alcohol withdrawal. I reassured Dr. Merida that the patient has had no signs or symptoms of withdrawal. His speech is clear today. Sense of humor definitely intact. Active Medications Acetaminophen (Acetaminophen 325 Mg Tablet) 650 mg PO Q4HR PRN PRN Reason: Pain 1 to 4, or Fever Aspirin (Aspirin 325 Mg Tablet) 325 mg PO DAILYWM [facility] Last Admin: 06/28/22 09:37 Dose: 325 mg Atorvastatin Calcium (Atorvastatin 40 Mg Tablet) 80 mg PO QPM [facility] Last Admin: 06/27/22 20:51 Dose: 80 mg Docusate Sodium (Docusate Sodium 250 Mg Capsule) 250 - 500 mg PO DAILY [facility] Last Admin: 06/28/22 09:37 Dose: 250 mg Ondansetron HCl (Ondansetron Odt 4 Mg Tablet) 4 mg TL Q6HR PRN PRN Reason: Nausea / Vomiting Ondansetron HCl (Ondansetron 4 Mg/2 Ml Vial) 4 mg IVP Q6HR PRN PRN Reason: Nausea / Vomiting Oxycodone HCl (Oxycodone 5 Mg Tablet) 5 mg PO Q4HR PRN PRN Reason: Pain 5 to 7 Polyethylene Glycol (Polyethylene Glycol 3350 17 Gm Packet) 17 gm PO DAILY [facility] Last Admin: 06/28/22 09:37 Dose: 17 gm Multivit/Folic Acid/Iron ( Vitamin Tablet) 1 tab PO DAILYWM [facility] Last Admin: 06/28/22 09:36 Dose: 1 tab Senna (Senna 8.6 Mg Tablet) 8.6 - 17.2 mg PO DAILY [facility] Last Admin: 06/28/22 09:37 Dose: 8.6 mg Sodium Chloride (Sodium Chloride Flush 0.9% 10 Ml Syringe) 10 ml IVP PRN PRN PRN Reason: NEEDED PER PROVIDER ORDERS Sodium Chloride (Sodium Chloride Flush 0.9% 10 Ml Syringe) 10 ml IVP 0100,0900,1700 [facility] Last Admin: 06/28/22 09:37 Dose: 10 ml Thiamine HCl (Thiamine 100 Mg Tablet) 100 mg PO DAILY [facility] Last Admin: 06/28/22 09:37 Dose: 100 mg No Known Home Medications 01/20/20 Exam: Temperature is 36.3. Pulse 69. Blood pressure 141/77. Respirations 18. 93% on room air. Neck supple Lungs are clear with no respiratory distress. He is comfortable speaking to me. There is no use of accessory muscles when he tries to get up and do his exercises with PT. Regular rate and rhythm Abdomen soft, nontender Right facial droop, slight dysarthria, left gaze neglect is much improved. Extraocular movements are more more to the midline. Right arm is weak but he is able to now lift it and try and grab a cup. Occupational Therapy has given him soft grabs to try and help him feed himself better. Right leg is weak but he is able to stand on it. He is able to follow commands. Alert and oriented. Assessment/Plan (1) Stroke Impression: Stroke seen on CT with physical manifestation of focal weakness in right arm and leg, right-sided facial droop, right side gaze palsy, and mild-moderate slurred speech and positive ischemic changes on MRI. MRI showed no lesion indicating tissue . CT did show changes. He is at increased risk of ischemic stroke due to hyperlipidemia, smoking, evidence of patent ASD on transthoracic echocardiogram, ethnicity, gender, poor diet, and alcohol misuse. No evidence of atrial fibrillation on telemetry. Blood pressure is elevated. Plan: Could repeat MRI to see if ischemic lesion has developed stroke changes, but will not change treatment plan so no need. He is working with PT and doing well. OT as well. Will focus on risk reduction: continue 80 mg atorvastatin, Aspirin, and cessation of alcohol and cigarette smoking, and diet consisting of fruits and vegetables. May consider antihypertensive. Now that it has been a few days, his blood pressure is mildly elevated on a regular basis. We had hoped to discharge him today. However insurance authorization is still pending. We anticipate him being discharged tomorrow and transfer to acute inpatient rehab. (2) Smoking Impression: So far has not needed nicotine patch (3) Alcohol abuse Impression: Electrolytes within normal range. No hypertension, tachycardia, or diaphoresis during his stay. He has had no evidence of alcohol withdrawal. Plan: Banana bag has been discontinued and we have changed him over to oral vitamin supplementation. Continue eating normal diet with lean protein, fruits, and vegetables. Advised patient that cessation of alcohol reduces risk of cardiovascular event including CO and stroke. (4) Hyperlipemia Impression: Total cholesterol: 244 LDL cholesterol: 184 HDL cholesterol: 34 T ASCVD risk score: 26.2% risk of cardiovascular event (coronary or stroke , or non-fatal CO or stroke) Plan: Risk reduction: continue 80 mg atorvastatin (high-intensity statin), eat a diet consisting of lean protein, fruits, and vegetables. Cessation of alcohol and cigarettes. Recommend repeating his lipid panel in a month as well as repeating liver panel. Qualifiers: Hyperlipidemia type: unspecified Qualified Code(s): E78.5 - Hyperlipidemia, unspecified Qualifiers: Hyperlipidemia type: unspecified Qualified Code(s): E78.5 - Hyperlipidemia, unspecified
[2022-06-28] MEDS: ATORVASTATIN 40 MG TABLET PO SCH (21:36)
[2022-06-29] MEDS: SODIUM CHLORIDE FLUSH 0.9% 10 ML SYRINGE IVP SCH ×2 (01:00→08:43)
[2022-06-29 05:06] LABS: CALCIUM 9.2 mg/dL (8.5-10.3); CREATININE 0.9 mg/dL (0.6-1.2); POTASSIUM 3.9 mmol/L (3.5-5.0)
[2022-06-29] MEDS: SENNA 8.6 MG TABLET PO SCH (08:43)
[2022-06-29] MEDS: ASPIRIN 325 MG TABLET PO SCH (08:43)
[2022-06-29] MEDS: THIAMINE 100 MG TABLET PO SCH (08:43)
[2022-06-29] MEDS: PRENATAL VITAMIN TABLET PO SCH (08:43)
[2022-06-29] MEDS: DOCUSATE SODIUM 250 MG CAPSULE PO SCH (08:44)
[2022-06-29] MEDS: polyethylene glycoL 3350 17 GM PACKET PO SCH (08:44)
[2022-06-29 08:47] VITALS: BP 122/72
[2022-06-29 10:10] LABS: ESTIMATED AVERAGE GLUCOSE 103 mg/dL (70-100); HEMOGLOBIN A1c% 5.2 % (4.27-6.07)
== END 2022-06-29 10:30 | disposition short-term general hospital (02) | DRG 65 ==
LOC: EDUNIT# → ED 07:01 → MS2 09:03 → OBSVTOIN 06-26 11:25
PROVIDERS: ADMIT Specialist; ATTEND Specialist
DX: I63.9 Cerebral infarction, unspecified (principal); G81.91 Hemiplegia, unspecified affecting right dominant side; R29.810 Facial weakness; R47.81 Slurred speech; R29.706 NIHSS score 6; F17.210 Nicotine dependence, cigarettes, uncomplicated; F10.10 Alcohol abuse, uncomplicated; E78.5 Hyperlipidemia, unspecified; I10 Essential (primary) hypertension; R33.9 Retention of urine, unspecified; R47.1 Dysarthria and anarthria; H55.00 Unspecified nystagmus; Z20.822 Contact with and (suspected) exposure to COVID-19
CPT/HCPCS: 36415; 51701; 70450; 70496; 70498; 70551; 80048; 80053; 80061; 83036; 85025; 85610; 87635; 93005; 93306; 96365; 96366; 97116; 97162; 97167; 97530; 97535; 99285; A9270; G0378; G0480; J3411; Q9967; 80320; 83721

== ENCOUNTER 2022-09-26 08:00 | Outpatient (CLI) | payer MEDICARE, OTHER ==
[2022-09-26 11:38] LABS: BILIRUBIN,URINE NEGATIVE (NEGATIVE); GLUCOSE, URINE (UA) NEGATIVE (NEGATIVE); KETONES,URINE (UA) NEGATIVE (NEGATIVE); LEUKOCYTE ESTERASE, URINE NEGATIVE (NEGATIVE); NITRITE,URINE NEGATIVE (NEGATIVE); OCCULT BLOOD,URINE TRACE-INTA (NEGATIVE); PH,URINE 6.5 PH (5.0-7.5); PROTEIN,URINE NEGATIVE (NEGATIVE); UROBILINOGEN,URINE 2 E.U./dL (NORMAL)
[2022-09-26 11:44] LABS: CLARITY,URINE CLEAR (CLEAR); WBC,URINE 0-3 /HPF (0-3)
[2022-09-26 11:45] LABS: BACTERIA,URINE Rare /HPF (None Seen); MUCUS,URINE Few Strands; RBC,URINE 0-5 /HPF (0-5); SQUAMOUS EPITHELIAL CELL,UR RARE Squamous (<= Few)
== END 2022-09-26 23:59 | disposition home or self-care (01) ==
LOC: LAB.WCP 08:00
PROVIDERS: ATTEND Internal Medicine
DX: R30.0 Dysuria (principal)
CPT/HCPCS: 81001; 81003; 87086

== ENCOUNTER 2022-10-17 09:47 | Outpatient (CLI) | payer MEDICARE ==
--- NOTE | 2022-10-17 13:31 | Ultrasound Report ---
PROCEDURE: Testicle INDICATIONS: HYDROCELE TECHNIQUE: Real-time scanning was performed of the scrotum and testicles, with image documentation. Color and p ulse Doppler interrogation was performed of both testicles. COMPARISON: None. FINDINGS: Right: Testicle is normal in size at 4.5 x 2.4 x 3.4 cm, and homogenous in echotexture. Epididymis is normal in overall size and morphology. Small hydrocele .No varicoceles. Overlying scrotal skin i s normal in thickness. Left: Testicle is normal in size at 4.2 x 1.8 x 2.7 cm, and homogeneous in echotexture. Epididymis is normal in overall size and morphology. No hydrocele or varicoceles. Overlying scrotal skin is no rmal in thickness. Doppler: Color and pulse Doppler demonstrate normal and symmetric arterial flow in both testicles. IMPRESSION: 1. Small right hydrocele. 2. No evidence of testicular torsion. Reviewed by: Nomi Manzanares MD on 10/17/2022 1:30 PM PDT Approved by: Nomi Manzanares MD on 10/17/2022 1:30 PM PDT Station ID: [id number]
== END 2022-10-17 09:48 | disposition home or self-care (01) ==
LOC: DI 09:47
PROVIDERS: ATTEND Internal Medicine
DX: N43.3 Hydrocele, unspecified (principal)

== ENCOUNTER 2022-11-27 08:03 | Outpatient (CLI) | payer MEDICARE ==
[2022-11-27 11:57] LABS: BASOPHILS % (AUTO) 0.8 %; EOSINOPHILS # (AUTO) 0.1 10^3/uL (0.0-0.7); EOSINOPHILS % (AUTO) 1.5 %; HCT - HEMATOCRIT 40.5 % (42.0-52.0); HGB - HEMOGLOBIN 13.5 g/dL (14.0-18.0); LYMPHOCYTES # (AUTO) 1.7 10^3/uL (1.5-3.5); LYMPHOCYTES % (AUTO) 31.3 %; MEAN CORPUSCULAR HEMOGLOBIN 30.7 pg (27.0-31.0); MEAN CORPUSCULAR HGB CONC 33.3 g/dL (32.0-36.0); MEAN PLATELET VOLUME 10.5 fL (7.4-11.4); MONOCYTES # (AUTO) 0.4 10^3/uL (0.0-1.0); MONOCYTES % (AUTO) 6.6 %; NEUTROPHILS # (AUTO) 3.2 10^3/uL (1.5-6.6); NEUTROPHILS % (AUTO) 59.6 %; PLT - PLATELET COUNT 225 10^3/uL (130-450); RED CELL DISTRIBUTION WIDTH 13.4 % (12.0-15.0); WHITE BLOOD COUNT 5.3 x10^3/uL (4.8-10.8)
[2022-11-27 12:18] LABS: ALBUMIN 4.2 g/dL (3.2-5.5); ALBUMIN/GLOBULIN RATIO 1.2 (1.0-2.2); ALKALINE PHOSPHATASE 73 IU/L (42-121); ALT ALANINE AMINOTRANSFERASE 28 IU/L (10-60); AST ASPARTATE AMINOTRANSFERASE 25 IU/L (10-42); BILIRUBIN,TOTAL 0.6 mg/dL (0.2-1.0); BUN - BLOOD UREA NITROGEN 15 mg/dL (6-20); CALCIUM 9.5 mg/dL (8.5-10.3); CARBON DIOXIDE - CO2 28 mmol/L (21-32); CHLORIDE 106 mmol/L (101-111); CHOL/HDL RATIO 3.2 (<5.0); CHOLESTEROL 127 mg/dL; CREATININE 0.9 mg/dL (0.6-1.2); GFR - MDRD 84 (>89); GLUCOSE 103 mg/dL (70-100); HDL CHOLESTEROL 40 mg/dL; LDL CHOLESTEROL,CALCULATED 71 mg/dL; LDL/HDL RATIO 1.8 (<3.6); POTASSIUM 3.9 mmol/L (3.5-5.0); SODIUM 141 mmol/L (135-145); TOTAL PROTEIN 7.7 g/dL (6.7-8.2); TRIGLYCERIDES 82 mg/dL; VLDL CHOLESTEROL 16 mg/dL
[2022-11-27 12:25] LABS: CREATININE,URINE 101.6 mg/dL; MICROALBUM/CREATININE RATIO,UR 14.8 ug/mg (<30.0); MICROALBUMIN,URINE 1.5 mg/dL (0-300.0)
[2022-11-27 12:25] LABS: THYROID STIMULATING HORMONE 1.34 uIU/mL (0.34-5.60)
[2022-11-27 12:28] LABS: ESTIMATED AVERAGE GLUCOSE 103 mg/dL (70-100); HEMOGLOBIN A1c% 5.2 % (4.27-6.07)
== END 2022-11-27 08:04 | disposition home or self-care (01) ==
LOC: LAB.N 08:03
PROVIDERS: ATTEND Internal Medicine
DX: E78.5 Hyperlipidemia, unspecified (principal); R73.01 Impaired fasting glucose; Z12.5 Encounter for screening for malignant neoplasm of prostate; Z13.29 Encounter for screening for other suspected endocrine disorder; I63.9 Cerebral infarction, unspecified
CPT/HCPCS: 36415; 80053; 80061; 82043; 82570; 83036; 84443; 85025; G0103; 83721; 84153

== ENCOUNTER 2023-09-18 10:17 | Outpatient (CLI) | payer MEDICARE ==
[2023-09-18 12:15] LABS: BASOPHILS % (AUTO) 0.2 %; EOSINOPHILS # (AUTO) 0.1 10^3/uL (0.0-0.7); EOSINOPHILS % (AUTO) 1.5 %; HCT - HEMATOCRIT 41.3 % (42.0-52.0); HGB - HEMOGLOBIN 13.8 g/dL (14.0-18.0); LYMPHOCYTES # (AUTO) 2.4 10^3/uL (1.5-3.5); LYMPHOCYTES % (AUTO) 30.3 %; MEAN CORPUSCULAR HEMOGLOBIN 31.9 pg (27.0-31.0); MEAN CORPUSCULAR HGB CONC 33.4 g/dL (32.0-36.0); MEAN CORPUSCULAR VOLUME 95.4 fL (80.0-94.0); MEAN PLATELET VOLUME 9.5 fL (7.4-11.4); MONOCYTES # (AUTO) 0.5 10^3/uL (0.0-1.0); MONOCYTES % (AUTO) 6.3 %; NEUTROPHILS # (AUTO) 4.9 10^3/uL (1.5-6.6); NEUTROPHILS % (AUTO) 61.2 %; PLT - PLATELET COUNT 263 10^3/uL (130-450); RED BLOOD COUNT 4.33 10^6/uL (4.70-6.10); RED CELL DISTRIBUTION WIDTH 13.4 % (12.0-15.0); WHITE BLOOD COUNT 8.1 x10^3/uL (4.8-10.8)
[2023-09-18 12:36] LABS: CREATININE,URINE 81.4 mg/dL; MICROALBUM/CREATININE RATIO,UR 11.1 ug/mg (<30.0); MICROALBUMIN,URINE 0.9 mg/dL
[2023-09-18 12:37] LABS: ESTIMATED AVERAGE GLUCOSE 100 mg/dL (70-100); HEMOGLOBIN A1c% 5.1 % (4.27-6.07)
[2023-09-18 12:38] LABS: THYROID STIMULATING HORMONE 0.92 uIU/mL (0.34-5.60)
[2023-09-18 12:39] LABS: ALBUMIN 4.4 g/dL (3.2-5.5); ALBUMIN/GLOBULIN RATIO 1.4 (1.0-2.2); ALKALINE PHOSPHATASE 74 IU/L (42-121); ALT ALANINE AMINOTRANSFERASE 18 IU/L (10-60); AST ASPARTATE AMINOTRANSFERASE 21 IU/L (10-42); BILIRUBIN,TOTAL 0.5 mg/dL (0.2-1.0); BUN - BLOOD UREA NITROGEN 12 mg/dL (6-20); CALCIUM 10.1 mg/dL (8.5-10.3); CARBON DIOXIDE - CO2 30 mmol/L (21-32); CHLORIDE 105 mmol/L (101-111); CHOL/HDL RATIO 5.3 (<5.0); CHOLESTEROL 210 mg/dL; GFR - MDRD 74 (>89); GLUCOSE 99 mg/dL (74-104); HDL CHOLESTEROL 40 mg/dL; LDL CHOLESTEROL,CALCULATED 137 mg/dL; LDL/HDL RATIO 3.4 (<3.6); POTASSIUM 4.2 mmol/L (3.5-4.5); SODIUM 139 mmol/L (135-145); TOTAL PROTEIN 7.5 g/dL (6.4-8.9); TRIGLYCERIDES 167 mg/dL (48-352); VLDL CHOLESTEROL 33 mg/dL
== END 2023-09-18 10:18 | disposition home or self-care (01) ==
LOC: LAB.N 10:17
PROVIDERS: ATTEND Internal Medicine
DX: E78.5 Hyperlipidemia, unspecified (principal); R73.01 Impaired fasting glucose; F43.20 Adjustment disorder, unspecified; I10 Essential (primary) hypertension
CPT/HCPCS: 36415; 80053; 80061; 82043; 82570; 83036; 83721; 84443; 85025

== ENCOUNTER 2024-02-27 09:08 | Outpatient (CLI) | payer MEDICARE ==
[2024-02-27 13:01] LABS: ALBUMIN 4.5 g/dL (3.2-5.5); ALBUMIN/GLOBULIN RATIO 1.9 (1.0-2.2); ALKALINE PHOSPHATASE 68 IU/L (42-121); ALT ALANINE AMINOTRANSFERASE 21 IU/L (10-60); AST ASPARTATE AMINOTRANSFERASE 23 IU/L (10-42); BILIRUBIN,TOTAL 0.7 mg/dL (0.2-1.0); BUN - BLOOD UREA NITROGEN 11 mg/dL (6-20); CALCIUM 9.6 mg/dL (8.5-10.3); CARBON DIOXIDE - CO2 29 mmol/L (21-32); CHLORIDE 104 mmol/L (101-111); CHOL/HDL RATIO 3.1 (<5.0); CHOLESTEROL 144 mg/dL; CREATININE 0.9 mg/dL (0.6-1.3); GFR - MDRD 84 (>89); GLUCOSE 108 mg/dL (74-104); HDL CHOLESTEROL 47 mg/dL; LDL CHOLESTEROL,CALCULATED 79 mg/dL; LDL/HDL RATIO 1.7 (<3.6); POTASSIUM 3.9 mmol/L (3.5-4.5); SODIUM 138 mmol/L (135-145); TOTAL PROTEIN 6.9 g/dL (6.4-8.9); TRIGLYCERIDES 91 mg/dL; VLDL CHOLESTEROL 18 mg/dL
[2024-02-27 13:04] LABS: ESTIMATED AVERAGE GLUCOSE 97 mg/dL (70-100)
== END 2024-02-27 09:09 | disposition home or self-care (01) ==
LOC: LAB.N 09:08
PROVIDERS: ATTEND Internal Medicine
DX: I10 Essential (primary) hypertension (principal); E78.5 Hyperlipidemia, unspecified; R73.01 Impaired fasting glucose; Z12.5 Encounter for screening for malignant neoplasm of prostate
CPT/HCPCS: 36415; 80053; 80061; 83036; G0103; 83721; 84153